=== PATIENT | male | born 1965 | race Two or more races ===

== ENCOUNTER → 2024-04-01 | Outpatient (CLI) | payer MEDICAID, SELFPAY ==
--- NOTE | 2024-04-01 14:20 | XR_ITS ---
Examination: Bone densitometry Date and time of exam:April 01, 2024 1425 hours INDICATIONS: 58-year-old male with diagnosis age related osteoporosis Technique: Lumbar spine total bone mineralization values of an calculated. Peak reference and age match control results have been displayed. Findings: Lumbar spine total bone mineralization is0.847 gm/cm2. This is 2.2 standard deviations below peak reference. This is 1.6 standard deviations below age-matched controls. Impression: There is osteopenia based on lumbar spine measurements.
== END | disposition home or self-care (01) ==
PROVIDERS: Referring Provider Physician Assistant; Visit Provider Physician Assistant
DX: M85.88 Other specified disorders of bone density and structure, other site (principal); G80.9 Cerebral palsy, unspecified
CPT/HCPCS: 77080

== ENCOUNTER 2024-09-01 19:02 | Inpatient (IN) | payer MEDICAID, SELFPAY ==
[2024-09-01 19:14] VITALS: PULSE 83; RESP 16; O2SAT 99
--- NOTE | 2024-09-01 19:20 | EKG_ITS ---
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
--- NOTE | 2024-09-01 19:20 | PD.EDSOB ---
ED SOB =RME/HPI General Chief Complaint: Dental/Oral/Throat Stated Complaint: CHOCKING Time Seen by Provider: 09/01/24 19:20 Arrival date/time: 09/01/24 19:02 RME / HPI RME / HPI Narrative: Dr. 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 Per EMS, patient was being fed dinner when he started choking. CPR was started by family on scene because they thought it might help remove the food bolus. PFD placed a NPA prior to EMS arrival. EMS removed the NPA, suctioned the patient, and was able to remove the food bolus. Patient is nonverbal and is unable to provide any history. Related Data Home Medications ?Medication ?Instructions ?Recorded ?Confirmed atorvastatin 20 mg tablet (Lipitor) 20 mg PO HS #0 tabs 03/08/17 09/20/20 docusate sodium 250 mg capsule 250 mg PO BID #0 caps 03/08/17 09/20/20 (DOK) melatonin 5 mg tablet 10 mg PO HS #0 tabs 03/08/17 09/20/20 levothyroxine 75 mcg capsule 75 mcg PO QDAY 09/20/20 09/20/20 trazodone 50 mg tablet 50 mg PO HS 09/20/20 09/20/20 Allergies Allergy/AdvReac Type Severity Reaction Status Date / Time No Known Allergies Allergy Verified 09/20/20 11:54 Review of Systems Review of Systems ROS Unobtainable: unobtainable due to mental status Past Medical History Social History SMOKING STATUS: Never smoker ED Exam Narrative Physical exam: GEN. APPEARANCE: The patient is alert awake, nonverbal, appears chronically ill, does not follow commands, no stridor. VITALS: All vitals were reviewed and the pulse ox is 95% on 6L/oxy mask which is abnormal according to my interpretation. HEENT: Normocephalic, atraumatic. Pupils are equal and reactive. Oral mucosa is moist. Dry blood to bilateral nares. Mostly edentulous. NECK: Supple, nontender, no thyromegaly, no meningismus, no JVD CHEST: Symmetrical, atraumatic, and with equal expansion , Nontender on palpation no deformity and no crepitus. CARDIOVASCULAR: Heart regular rhythm no murmur or gallop rub or extra beats. LUNGS: Clear to auscultation bilaterally with symmetrical chest rise. No laboring tachypnea or wheezing. No intercostal subcostal retraction. No rales and no rhonchi. ABDOMEN: Soft, flat, nontender to palpation, no guarding or rebound tenderness. There are no abnormal masses palpated. Active and normal bowel sounds. EXTREMITIES: Nontender. No edema. No cyanosis. Contractures of all 4 extremities. SKIN: Warm and dry, no jaundice or rashes noted. NEURO: Patient is awake, Cranial nerves II through XII grossly intact. There is no focal neurologic deficits noted. Course Course Course Narrative: CXR ordered to r/o aspiration pneumonia. Quality Measures none Orders Category Date Time Status Bedside COVID-19 Antigen Test NOW Care 09/01/24 19:20 Active Bedside Influenza A&B Antigen Test NOW Care 09/01/24 19:[address] Screening NOW Care 09/01/24 21:[address] Screening NOW Care 09/01/24 21:38 Completed EKG (ED ONLY) *Do not use* NOW Care 09/01/24 19:[address] abdomen pelvis w con Stat Exams 09/01/24 21:[address] angio chest Stat Exams 09/01/24 21:[address] facial bones wo con Stat Exams 09/01/24 19:[address] head/brain wo con Stat Exams 09/01/24 19:23 Taken CXR [XR chest 1V] Stat Exams 09/01/24 19:20 Completed EKG (ED Only) Stat Exams 09/01/24 19:20 Draft XR soft tissue neck Stat Exams 09/01/24 19:20 Completed BNP [B-Type Natriuretic Peptide] Stat Lab 09/01/24 19:44 Completed CBC Stat Lab 09/01/24 19:44 Completed CMP [Comprehensive Metabolic Panel] Stat Lab 09/01/24 19:44 Completed Troponin I Stat Lab 09/01/24 19:44 Completed Midazolam Inj [Versed Inj] Med 09/01/24 21:47 Discontinued 0.5 mg IVP NOW ONE Midazolam Inj [Versed Inj] Med 09/01/24 21:50 Discontinued 0.5 mg IVP X1 STA Midazolam Inj [Versed Inj] Med 09/02/24 00:02 Discontinued 1 mg IVP X1 ONE traZODone HCL [Desyrel] Med 09/01/24 21:50 Discontinued 100 mg PO X1 ONE Vital Signs Vital signs: Vital Signs Temperature 97.5 F 09/01/24 19:24 Pulse Rate 73 09/01/24 19:24 Respiratory Rate 20 09/01/24 19:24 Blood Pressure 111/76 09/01/24 19:24 Pulse Oximetry (%) 95 09/01/24 19:24 Oxygen Delivery Method Oxy Mask 09/01/24 19:24 Oxygen Flow Rate 6 09/01/24 19:24 PROCEDURES: Rectal Disimpaction Time out performed rectal disimpaction: Yes Indication: fecal impaction Procedural Sedation: No Sedation/Analgesia: none Technique: manual disimpaction with gloved finger Result: unable to disimpact Patient Tolerated Procedure: well and no complications Shortness of Breath / Dyspnea MDM Narrative MDM Narrative:: Scribe Attestation: 09/01/24 - Rocio, Samina Polanco am scribing for and in the presence of Dr. Branch. Patient is a 59-year-old male with an emergency department with concerns for acute choking episode with food. Vital signs and exam as listed. Concern for aspiration, pneumonitis, pneumonia. Ordered x-ray of the neck, chest x-ray and labs. Labs without leukocytosis, no left shift, no acute electrolyte abnormalities, no significant transaminitis, troponin not elevated, BNP within normal limits. EKG without evidence of ischemia or arrhythmia, soft tissue neck unremarkable. Chest x-ray with possible aspiration pneumonitis. Head CT, CT max face unremarkable. CT chest with groundglass densities. CT abdomen pelvis with significantly dilated loops of bowel, there was a large stool ball distending the rectum with mild circumferential rectal wall thickening and some perirectal soft tissue stranding concerning for stercoral colitis. Also a large fecal load concerning for constipation. A small subcentimeter metallic appearing density noted within the ascending colon which may represent ingested material. No free air. I performed a rectal disimpaction, minimal stool was able to be removed, not within reach of my fingers. Given finding on CT scan, I did discuss admission with the hospitalist team as the patient may benefit from a gastroenterology evaluation. 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 EKG done at [facility] Report Signed Patient: MARIUSZ ZHANG. Record#: [id number] Birthdate: 1965 Age/Sex: 59 / M Location: [facility] Attending Dr: Ordering Physician: Maribell Branch MD Date of Service: 09/01/24 Procedure(s): XR chest 1V Accession Number(s): [id number] cc: Uri Junior MD; Maribell Branch MD; Alfredo Fernandez PA-C~ Examination: AP chest single view TECHNIQUE: AP semiupright chest portable single view Date and time: September 01, 2024, 1927 hours INDICATIONS: Choking episode today. FINDINGS: Minimal pneumonia right base obscuring detail right hemidiaphragm Normal heart size The osseous structures are intact IMPRESSION: Minimal pneumonia right base, consider aspiration pneumonia Dictated By: Uri Junior MD Signed By: <Electronically signed by Uri Junior MD in OV> 09/01/[id number] [facility] Report Signed Patient: MARIUSZ ZHANG. Record#: [id number] Birthdate: 1965 Age/Sex: 59 / M Location: [facility] Attending Dr: Ordering Physician: Maribell Branch MD Date of Service: 09/01/24 Procedure(s): XR soft tissue neck Accession Number(s): [id number] cc: Uri Junior MD; Maribell Branch MD; Youssefi,Alfredo PA-C~ Examination: AP lateral soft tissue neck 2 views TECHNIQUE: AP lateral soft tissue neck 2 views Date and time: September 01, 2024 1925 hours INDICATIONS: Coughing obstruction today choking FINDINGS: Normal epiglottis No prevertebral soft tissue prominence No opaque foreign body IMPRESSION: Normal epiglottis No prevertebral soft tissue prominence Dictated By: Uri Junior MD Signed By: <Electronically signed by Uri Junior MD in OV> 09/01/242136 [facility] Preliminary Report Draft Patient: MARIUSZ ZHANG. Record#: [id number] Birthdate: 1965 Age/Sex: 59 / M Location: [facility] Attending Dr: Ordering Physician: Date of Service: Procedure(s): Accession Number(s): cc: ~ CT maxillofacial without intravenous contrast (axial sections with sagittal and coronal reformats). September 01, 2024 2358 hours Clinical History: trauma Comparison: None Findings: There is no fracture, dislocation or other acute osseous abnormality of the face. Globes are intact. There is drusen along the posterior aspect of both globes. Superficial soft tissues of the face are intact. There is mild paranasal sinus fluid/mucosal thickening. The tympanomastoid cavities are clear. There is cerumen within the external auditory canals bilaterally. There are numerous missing teeth. There is degenerative change in the cervical spine. Impression: No acute osseous abnormality of the face. Report Electronically Signed By: Chadd Zacarias 09/02/2024 2:24:44 AM [EST] [facility] Preliminary Report Draft Patient: MARIUSZ ZHANG [facility]. Record#: [id number] Birthdate: 1965 Age/Sex: 59 / M Location: [facility] Attending Dr: Ordering Physician: Date of Service: Procedure(s): Accession Number(s): cc: ~ CT angiogram of the chest with intravenous contrast (axial sections with sagittal and coronal reformats). September 02, 2024 0018 hours Clinical History: PE, aspiration Comparison: None Findings: Heart is normal in size. There is no pericardial or pleural effusion. There is no thoracic aortic aneurysm or obvious thoracic aortic dissection. There is no filling defect within the pulmonary arterial circulation. Thyroid is not enlarged. There is no thoracic lymphadenopathy. There are patchy somewhat ground glass densities within the lungs bilaterally which may represent atelectasis and/or pneumonia. There is no pneumothorax. There is no acute osseous abnormality. Mild dextrocurvature noted of the thoracic spine. Impression: No thoracic aortic aneurysm or dissection. No pulmonary arterial embolism. No pericardial or pleural effusion. No pneumothorax. Patchy ground glass densities in the lungs bilaterally may indicate atelectasis and/or pneumonia. Report Electronically Signed By: Chadd Zacarias 09/02/2024 2:32:47 AM [EST [facility] Preliminary Report Draft Patient: MARIUSZ ZHANG [place]. Record#: [id number] Birthdate: 1965 Age/Sex: 59 / M Location: [facility] Attending Dr: Ordering Physician: Date of Service: Procedure(s): Accession Number(s): cc: ~ CT scan of the head without intravenous contrast (axial sections with sagittal and coronal reformats). September 01, 2024 at 2358 hours Clinical History: AMS. Comparison: No prior study is available for comparison. Findings: There is no intracranial hemorrhage, extra-axial collection, mass, mass-effect or midline shift. There is mild white matter disease within the cerebral hemispheres which is nonspecific but may represent chronic small vessel ischemic change. There is good woody-white differentiation. There is no CT evidence of acute large vascular territorial infarct. There is mild passive compensatory enlargement of the lateral ventricles and also possibly the third ventricle. There is mild bilateral maxillary sinus and left sphenoid sinus fluid/mucosal thickening. The tympanomastoid cavities are clear. The bony calvarium is intact. There is increased density of the right globe, which may be related to postoperative change, recommend clinical correlation. There is drusen suggested along the posterior aspect of both globes. Impression: No intracranial hemorrhage, mass-effect or midline shift. No CT evidence of acute large vascular territorial infarct. Report Electronically Signed By: Chadd Zacarias 09/02/2024 2:41:17 AM [EST] [facility] Preliminary Report Draft Patient: MARIUSZ ZHANG. Record#: [id number] Birthdate: 1965 Age/Sex: 59 / M Location: [facility] Attending Dr: Ordering Physician: Date of Service: Procedure(s): Accession Number(s): cc: ~ CT scan of the abdomen and pelvis with intravenous contrast (axial sections with sagittal and coronal reformats). September 02, 2024 0018 hours Clinical History: obstruction, dilated loops of bowel on CXR Comparison: None Findings: The liver, gallbladder, spleen, pancreas, adrenals and kidneys are unremarkable. Urinary bladder only contains a small amount of fluid and and is not adequately distended. Nonspecific central prostatic calcification noted. Prostate is not enlarged. There is large stool ball distending the rectum with mild circumferential rectal wall thickening and some mild perirectal soft tissue stranding, findings are suspicious for stercoral colitis. There is overall large fecal load in the colon suggesting constipation. Appendix is not definitely visualized there is no obvious inflammatory change around the cecum. Small subcentimeter metallic appearing density noted within the ascending colon and may represent some ingested material. There is no free intraperitoneal air or fluid. There is no abdominal or pelvic lymphadenopathy. There are vascular calcifications along the abdominal aorta and branch vessels without aneurysmal dilatation. There is no acute osseous abnormality. Impression: Large stool ball distending the rectum with circumferential rectal wall thickening and perirectal fat stranding worrisome for stercoral colitis. Recommend fecal disimpaction. Report Electronically Signed By: Chadd Zacarias 09/02/2024 2:53:30 AM [EST] Medications / Prescriptions Medications or Prescriptions considered but not ordered:: none Medication administrations:: Medication Administration History Acetaminophen (Acetaminophen Supp 650 Mg Supp) [address] Q6HR PRN PRN Reason: Fever > 100.4 Stop: 10/02/24 03:52 Lactated Ringer's (Lactated Ringers) 1,000 mls @ 75 mls/hr IV .[id number] [facility] Stop: 09/02/24 17:19 Ampicillin Sodium/Sulbactam (Sodium 3 gm/ Sodium Chloride) 100 mls @ 200 mls/hr IV Q6HR [facility] Stop: 09/09/24 05:59 Ondansetron HCl (Ondansetron Inj 2 Mg/Ml Inj 2 Ml) 4 mg IVP Q6H PRN; Protocol PRN Reason: NAUSEA OR VOMITING Stop: 10/02/24 03:52 Pantoprazole Sodium (Pantoprazole Inj 40 Mg Vial) 40 mg IVP QDAY CHARLES Stop: 10/02/24 08:59 Discontinued Medications Midazolam HCl (Midazolam Inj 1 Mg/Ml Vial 2 Ml) 0.5 mg IVP NOW ONE Stop: 09/01/24 21:48 Last Admin: 09/01/24 23:38 Dose: Not Given Documented By: EE Non-Admin Reason: Cancelled by Provider Midazolam HCl (Midazolam Inj 1 Mg/Ml Vial 2 Ml) 0.5 mg IVP X1 STA Stop: 09/01/24 21:51 Last Admin: 09/01/24 23:39 Dose: 0.5 mg Documented By: EE Midazolam HCl (Midazolam Inj 1 Mg/Ml Vial 2 Ml) 1 mg IVP X1 ONE Stop: 09/02/24 00:03 Last Admin: 09/02/24 00:10 Dose: 1 mg Documented By: EE Trazodone HCl (Trazodone Hcl 50 Mg Tablet) 100 mg PO X1 ONE Stop: 09/01/24 21:51 Last Admin: 09/01/24 23:38 Dose: Not Given Documented By: EE Non-Admin Reason: Cancelled by Provider see above Consultations Consultation(s) initiated? (list below): Yes Consultation #1 (Physician, Specialty, Details): Discussed case with the resident physician, attending Dr. Pena from Hospitalist service regarding admission. Discussed patients ED course, exam findings, labs, and radiology results. The Hospitalist agrees to accept the patient for admission. Time: 03:01 Diagnosis Shortness of Breath Differential Diagnosis: other (aspiration, partial bowel obstruction, perforation) Most likely diagnosis given after review of the tests above:: stercoral colitis, fecal impaction Admission Indicated Admission indicated?: indicated Admission Request Was there a request for admission?: Yes Admission Attestation Admission request attestation: Discussed case with [] from Hospitalist service regarding admission. Discussed patients ED course, exam findings, labs, and radiology results. The Hospitalist [agrees,declines] to accept the patient for admission. Disposition Plan Disposition Plan: Admit Critical Care Time Critical Care Time Critical Care Time: Yes Total Critical Care Time (min.): 35 Attestation: The high probability of sudden, clinically significant deterioration in the patient?s condition required the highest level of my preparedness to intervene urgently. The services I provided to this patient were to treat and/or prevent clinically significant deterioration. Services included the following: chart data review, reviewing nursing notes and/or old charts, documentation time, chain sales consultant collaboration regarding findings and treatment options, medication orders and management, direct patient care, vital sign assessments and ordering, interpreting and reviewing diagnostic studies and lab tests. Aggregate critical care time includes only time during which I was engaged in work directly related to the patient?s care, as described above, whether at bedside or elsewhere in the Emergency Department. It did not include time spent performing other reported procedures or the services of residents, students, nurses or physician assistants. Discharge Plan Plan Patient Disposition: Admit Acute Care w/in Hospital Problem List Clinical Impression: Stercoral colitis, Fecal impaction
--- NOTE | 2024-09-01 19:23 | XR_ITS ---
Examination: CT brain head without contrast. 2-D sagittal coronal reconstructions Date and time of exam:September 01, 2024, 2015 hours INDICATIONS: Altered mental status today CTDI: vol (mGy):51 DLP: (mGycm):1024 Technique: Multiple CT axial sections of the brain have been obtained, 5 mm slice thickness. Contrast has not been administered. 2-D sagittal, coronal reconstructions have been obtained Low dose protocols were performed. One or more of the following dose reduction techniques were used; automated exposure control, adjustment of the mA and/or KV according to patient size, use of iterative reconstruction technique. Findings: Mild ventricular enlargement. Intra-axial or extra-axial hemorrhage density is not seen. No mass effect or midline shift Basal cisterns are not remarkable. Fourth ventricle is midline. Cranial vault intact. Impression: Negative for acute hemorrhage, mass effect or midline shift Acute left sphenoid sinusitis
--- NOTE | 2024-09-01 19:23 | XR_ITS ---
Examination: CT maxillofacial, without intravenous contrast. 2-D sagittal reconstructions. 3-D reconstructions. Date and time of exam:September 01, 2024 at 2018 hours INDICATIONS: Trauma to the neck today CTDI: vol (mGy):22.1 DLP: (mGycm):467 Technique: Multiple axial images of maxillofacial region, 3.0 mm slice thickness. 2-D sagittal and coronal reconstructions. 3-D reconstructions. Low dose protocols were performed. One or more of the following dose reduction techniques were used; automated exposure control, adjustment of the mA and/or KV according to patient size, use of iterative reconstruction technique. Findings: Frontal and frontal sinuses intact No nasal bone fracture Orbital rims intact No depression zygomatic arches Fluid level of maxillary antrum Maxilla and mandible are intact Right maxillary incisor dental caries. IMPRESSION: No acute facial fracture
[2024-09-01 19:24] VITALS: BP 111/76; PULSE 73; RESP 20; TEMP 36.4; O2SAT 95
[2024-09-01 20:00] LABS: Basophils # (Auto) 0.1 Thou/mm3 (0.0-0.2); Basophils % (Auto) 1 % (0-2.5); Eosinophils # (Auto) 0.1 Thou/mm3 (0.0-0.5); Eosinophils % (Auto) 1 % (0-10); Hematocrit 40.2 % (41.0-53.0); Hemoglobin 14.0 g/dL (13.5-16.0); Immature Granulocytes Auto 0.02 Thou/mm3 (0.00-0.00); Lymphocytes # (Auto) 1.8 Thou/mm3 (1.0-4.8); Lymphocytes % (Auto) 25 % (10-50); Mean Corpuscular HGB Conc 34.8 g/dl (31.0-37.0); Mean Corpuscular Hemoglobin 30.9 pg (25.0-35.0); Mean Corpuscular Volume 89 fL (80-100); Monocytes # (Auto) 0.5 Thou/mm3 (0.0-0.8); Monocytes % (Auto) 7 % (0-12); Neutrophils # (Auto) 4.8 Thou/mm3 (1.8-7.7); Neutrophils % (Auto) 65 % (37-80); Nucleated Red Blood Cell # 0.00 Thou/mm3 (0.00-0.00); Nucleated Red Blood Cell % 0 /100 WBC (0); Platelet Count 274 Thou/mm3 (140-440); RDW Standard Deviation 44.5 fL (35.1-43.9); Red Blood Count 4.53 Miln/mm3 (4.50-5.90); White Blood Count 7.3 Thou/mm3 (3.8-10.6)
[2024-09-01 20:16] LABS: B-Type Natriuretic Peptide 32 pg/mL (0-100)
[2024-09-01 20:18] LABS: Alanine Aminotransferase 28 U/L (10-49); Albumin, Serum 4.3 gm/dL (3.4-4.8); Albumin/Globulin Ratio 1.8 (1.2-2.2); Alkaline Phosphatase 145 U/L (46-116); Anion Gap 9 (7-16); Aspartate Amino Transferase 33 U/L (0-34); BUN/Creatinine Ratio 30 Ratio (12-20); Bilirubin,Total 0.3 mg/dL (0.3-1.2); Blood Urea Nitrogen 24 mg/dL (9-23); Calcium 9.9 mg/dL (8.3-10.6); Calcium (Corrected) 9.9 mg/dL (8.5-10.1); Carbon Dioxide 26.2 mMol/L (20.0-31.0); Chloride 106 mMol/L (98-107); Creatinine (Component) 0.8 mg/dL (0.6-1.3); Globulin 2.4 gm/dL (2.3-3.5); Glucose 137 mg/dL (74-106); Osmolality,Calculated 287 (275-295); Potassium 3.4 mMol/L (3.4-5.1); Sodium 141 mMol/L (136-145); Total Protein 6.7 gm/dL (5.7-8.2); Troponin I < 0.020 ng/mL (0.0-0.045); eGFR > 60 See Note
[2024-09-01 20:33] VITALS: BP 107/57; PULSE 76; RESP 20; TEMP 36.4; O2SAT 95
--- NOTE | 2024-09-01 21:30 | XR_ITS ---
Examination: CT abdomen with intravenous contrast CT pelvis with intravenous contrast 2-D coronal reconstructions 2-D sagittal reconstructions Date and time of exam:Choking coughing abdominal pain today. CTDI: vol (mGy) 9.40 DLP: (mGycm) 548 Technique: Multiple axial sections of the abdomen and pelvis have been obtained. 64 slice high-resolution scanner used. 3 mm axial sections have been obtained, post intravenous injection 100 cc Isovue-370 2-D sagittal, coronal reconstructions obtained. Low dose protocols were performed. One or more of the following dose reduction techniques were used; automated exposure control, adjustment of the mA and/or KV according to patient size, use of iterative reconstruction technique. Findings: No focal liver or splenic lesion No gallstones No pancreatic or adrenal mass No renal or ureteral calculi, no pericecal inflammatory change Large amounts of stool throughout the entire colon, very large amounts of stool in the rectosigmoid with thickening of the rectal wall No prostatomegaly Contracted urinary bladder, portions of the urinary bladder are present in right and left inguinal hernias Prominent osteopenia IMPRESSION: Very large amounts of stool in the rectosigmoid and rectum with thickening of the rectal wall, differential would include proctitis
--- NOTE | 2024-09-01 21:38 | XR_ITS ---
Examination: CTA chest with intravenous contrast 2-D reconstructions 3-D reconstructions, vascular Date and time of exam: September 02, 2024 0018 hours INDICATIONS: Choking shortness of breath chest pain today CTDI: vol (mGy) 10.6 DLP: (mGycm) 387 Technique: Multiple axial sections of the thorax have been obtained. 3 mm slice thickness, from below the hemidiaphragms to above the apices of the lungs. Mediastinal and lung density settings have been obtained. 2-D sagittal and coronal reconstructions. 3-D angiographic renderings, 3-D volume renderings, 3D post processing, vascular maximum intensity projections obtained. Contrast administered is 100 cc Isovue 370. Low dose protocols were performed. One or more of the following dose reduction techniques were used; automated exposure control, adjustment of the mA and/or KV according to patient size, use of iterative reconstruction technique. Findings: No thoracic aortic aneurysmal dilatation or dissection No pulmonary artery filling defects Mild enlargement cardiac contour and No mediastinal lymphadenopathy Mild vascular congestion Subtle opacity throughout the lung de paz Moderate osteopenia IMPRESSION: Negative for pulmonary artery emboli Suspicious for mild bilateral pneumonia
[2024-09-01 22:37] VITALS: BP 94/54; PULSE 73; RESP 20; O2SAT 99
[2024-09-01] MEDS: MIDAZOLAM INJ 1 MG/ML VIAL 2 ML 0.5 MG IVP (23:39)
[2024-09-01 23:57] VITALS: BP 118/80; PULSE 105; RESP 20; O2SAT 99
[2024-09-02] VITALS (13 sets, daily range): BP systolic 88–121; BP diastolic 43–75; PULSE 62–82; RESP 12–95; TEMP 34.4–36.9; O2SAT 91–99
[2024-09-02] MEDS: MIDAZOLAM INJ 1 MG/ML VIAL 2 ML IVP (00:10)
--- NOTE | 2024-09-02 02:25 | PRELIM_ITS ---
CT maxillofacial without intravenous contrast (axial sections with sagittal and coronal reformats). September 01, 2024 2358 hours Clinical History: trauma Comparison: None Findings: There is no fracture, dislocation or other acute osseous abnormality of the face. Globes are intact. There is drusen along the posterior aspect of both globes. Superficial soft tissues of the face are intact. There is mild paranasal sinus fluid/mucosal thickening. The tympanomastoid cavities are c lear. There is cerumen within the external auditory canals bilaterally. There are numerous missing teeth. There is degenerative change in the cervical spine. Impression: No acute osseous abnormality of the face. Report Electronically Signed By: Chadd Zacarias 09/02/2024 2:24:44 AM [EST]
--- NOTE | 2024-09-02 02:33 | PRELIM_ITS ---
CT angiogram of the chest with intravenous contrast (axial sections with sagittal and coronal reformats). September 02, 2024 0018 hours Clinical History: PE, aspiration Comparison: None Findings: Heart is normal in size. There is no pericardial or pleural effusion. There is no thoracic aortic aneurysm or obvious thoracic aortic dissection. There is no filling defect within the pulmonary arterial circulation. Thyroid is not enlarged. There is no thoracic lymphadenopathy. There are patchy somewhat ground glass densities within the lungs bilaterally which may represent atelectasis and/or pneumonia. There is no pneumothorax. There is no acute osseous abnormality. Mild dextrocurvature noted of the thoracic spine. Impression: No thoracic aortic aneurysm or dissection. No pulmonary arterial embolism. No pericardial or pleural effusion. No pneumothorax. Patchy ground glass densities in the lungs bilaterally may indicate atelectasis and/or pneumonia. Report Electronically Signed By: Chadd Zacarias 09/02/2024 2:32:47 AM [EST]
--- NOTE | 2024-09-02 02:41 | PRELIM_ITS ---
CT scan of the head without intravenous contrast (axial sections with sagittal and coronal reformats). September 01, 2024 at 2358 hours Clinical History: AMS. Comparison: No prior study is available for comparison. Findings: There is no intracranial hemorrhage, extra-axial collection, mass, mass-effect or midline shift. There is mild white matter disease within the cerebral hemispheres which is nonspecific but may represent chronic small vessel ischemic change. There is good woody-white differentiation. There is no CT evidence of acute large vascular territorial infarct. There is mild passive compensatory enlargement of the lateral ventricles and also possibly the third ventricle. There is mild bilateral maxillary sinus and left sphenoid sinus fluid/mucosal thickening. The tympanomastoid cavities are clear. The bony calvarium is intact. There is increased density of the right globe, which may be related to postoperative change, recommend clinical correlation. There is drusen suggested along the posterior aspect of both globes. Impression: No intracranial hemorrhage, mass-effect or midline shift. No CT evidence of acute large vascular territorial infarct. Report Electronically Signed By: Chadd Zacarias 09/02/2024 2:41:17 AM [EST]
--- NOTE | 2024-09-02 02:54 | PRELIM_ITS ---
CT scan of the abdomen and pelvis with intravenous contrast (axial sections with sagittal and coronal reformats). September 02, 2024 0018 hours Clinical History: obstruction, dilated loops of bowel on CXR Comparison: None Findings: The liver, gallbladder, spleen, pancreas, adrenals and kidneys are unremarkable. Urinary bladder only contains a small amount of fluid and and is not adequately distended. Nonspecific central prostatic calcification noted. Prostate is not enlarged. There is large stool ball distending the rectum with mild circumferential rectal wall thickening and some mild perirectal soft tissue stranding, findings are suspicious for stercoral colitis. There is overall large fecal load in the colon suggesting constipation. Appendix is not definitely visualized there is no obvious inflammatory change around the cecum. Small subcentimeter metallic appearing density noted within the ascending colon and may represent some ingested material. There is no free intraperitoneal air or fluid. There is no abdominal or pelvic lymphadenopathy. There are vascular calcifications along the abdominal aorta and branch vessels without aneurysmal dilatation. There is no acute osseous abnormality. Impression: Large stool ball distending the rectum with circumferential rectal wall thickening and perirectal fat stranding worrisome for stercoral colitis. Recommend fecal disimpaction. Report Electronically Signed By: Chadd Zacarias 09/02/2024 2:53:30 AM [EST]
--- NOTE | 2024-09-02 04:00 | PD.RESHP ---
Documentation for date of: 09/02/24 HPI History of Present Illness Chief complaint: Choking History of present illness: 59-year-old male with past medical history of developmental delay nonverbal at baseline, cerebral palsy, chronic constipation, previous GI bleed, and GERD was admitted to the hospital on 09/02/2024 after come to the ED after witnessed episode of choking at the alf. Given patient's nonverbal status most of the history was taken from chart review and from the patient's caregiver was at bedside. Patient's caregiver was at bedside and stated that today he was eating dinner and was eating too fast and had an episode of choking where they did the Heimlich, but were unsuccessful on removing any impacted food. At this time per patient's caregiver they have started chest compressions with the patient was found unresponsive, but it was unclear if patient lost pulse. Patient was not hypoxic at this time, but in the ED was found to be mildly hypoxic and was placed on OxyMask. Per patient's caregiver patient has been having bowel movements but have mostly been loose and he normally gets medication for constipation. She stated that otherwise the patient was in usual state of health and that today he also had some nosebleed as well. Otherwise patient has not had any other episodes of choking or any sick contacts. ED course: Initially came in afebrile and normotensive. Initial labs were fairly unremarkable. Initial imaging included chest x-ray which showed right base pneumonia, soft tissue neck x-ray which was unremarkable, face CT which preliminary did not show any fractures, CTA chest with preliminary showed pneumonia, but no pneumothorax or pericardial effusions, CTA head with preliminary report did not show any intracranial hemorrhage or mass effect, and CT abdomen/pelvis with preliminary showed large stool ball distending the rectum with circumferential rectal wall thickening and perirectal fat stranding which is worrisome for stercoral colitis. ED physician attempted manual disimpaction but was unsuccessful at this time. Patient's CODE STATUS was placed full code as patient is conserved, but no documentation of patient's CODE STATUS as this time was given. Will follow-up on CODE STATUS tomorrow as caregiver at bedside did not know the CODE STATUS either. Review of Systems Review of Systems ROS Unobtainable: unobtainable due to medical condition Past Medical History Past Medical History Comments PMH COMMENT: PMH: developmental delay nonverbal at baseline, cerebral palsy, chronic constipation, previous GI bleed, and GERD Exam Vital Signs Temp Pulse Resp BP Pulse Ox O2 Del Method O2 Flow Rate 97.1 F 69 12 98/56 L 99 Oxy Mask 6 09/02/24 03:00 09/02/24 03:00 09/02/24 03:00 09/02/24 03:00 09/02/24 03:00 09/02/24 03:00 09/02/24 03:00 Narrative Exam Physical exam very limited given patient's medical condition. General: Patient did not appear to be in any acute distress at this time, nonverbal at baseline Eyes: Pupils equally reactive, EOMI Ears: No visible ear discharge Nose: Some dried blood around nostrils up laterally Mouth/Throat: Moist mucous membranes, multiple missing teeth, no redness, no lesions. Neck: Neck supple, non-tender, no cervical lymphadenopathy. Lungs: Mildly decreased on the right lower lobe, clear bilaterally upper lobes and left lower lobe, No accessory muscle use. Cardio: Normal S1/S2, regular rhythm, no murmurs, no JVD Abdomen: Soft, non distended, no palpable masses, peristalsis present, no guarding or rebound. Extremities: Symmetrical, no significant deformities, no peripheral edema , non-tender, peripheral pulses presents, bilateral lower extremities with contractures. Skin: No rashes, no lesions, warm to touch. Neuro: Patient unable to follow commands, but was moving all extremities. Results: Labs 09/02/24 04:56 09/01/24 19:44 Labs: Short CBC 09/01/24 Range/Units 19:44 WBC 7.3 (3.8-10.6) Thou/mm3 Hgb 14.0 (13.5-16.0) g/dL Hct 40.2 L (41.0-53.0) % Plt Count 274 (140-440) Thou/mm3 BMP 09/01/24 19:44 Sodium 141 Potassium 3.4 Chloride 106 Carbon Dioxide 26.2 BUN 24 H Creatinine 0.8 Glucose 137 H Calcium 9.9 Cardiac Enzymes 09/01/24 Range/Units 19:44 Troponin I < 0.020 (0.0-0.045) ng/mL Liver Function 09/01/24 Range/Units 19:44 Total Bilirubin 0.3 (0.3-1.2) mg/dL AST 33 (0-34) U/L ALT 28 (10-49) U/L Alkaline Phosphatase 145 H (46-116) U/L Albumin 4.3 (3.4-4.8) gm/dL Quality Measures Quality Measures none Medications Home Medications and Allergies Home Medications ?Medication ?Instructions ?Recorded ?Confirmed ?Type atorvastatin 20 mg tablet (Lipitor) 20 mg PO HS #0 tabs 03/08/17 09/20/20 History docusate sodium 250 mg capsule 250 mg PO BID #0 caps 03/08/17 09/20/20 History (DOK) melatonin 5 mg tablet 10 mg PO HS #0 tabs 03/08/17 09/20/20 History levothyroxine 75 mcg capsule 75 mcg PO QDAY 09/20/20 09/20/20 History trazodone 50 mg tablet 50 mg PO HS 09/20/20 09/20/20 History Allergies Allergy/AdvReac Type Severity Reaction Status Date / Time No Known Allergies Allergy Verified 09/20/20 11:54 Visit Medications Acetaminophen (Acetaminophen Supp 650 Mg Supp) 650 mg NM Q6HR PRN PRN Reason: Fever > 100.4 Stop: 10/02/24 03:52 Lactated Ringer's (Lactated Ringers) 1,000 mls @ 75 mls/hr IV .[id number] [facility] Stop: 09/02/24 17:19 Ampicillin Sodium/Sulbactam (Sodium 3 gm/ Sodium Chloride) 100 mls @ 200 mls/hr IV Q6HR [facility] Stop: 09/09/24 05:59 Ondansetron HCl (Ondansetron Inj 2 Mg/Ml Inj 2 Ml) 4 mg IVP Q6H PRN; Protocol PRN Reason: NAUSEA OR VOMITING Stop: 10/02/24 03:52 Discontinued Medications Midazolam HCl (Midazolam Inj 1 Mg/Ml Vial 2 Ml) 0.5 mg IVP NOW ONE Stop: 09/01/24 21:48 Last Admin: 09/01/24 23:38 Dose: Not Given Midazolam HCl (Midazolam Inj 1 Mg/Ml Vial 2 Ml) 0.5 mg IVP X1 STA Stop: 09/01/24 21:51 Last Admin: 09/01/24 23:39 Dose: 0.5 mg Midazolam HCl (Midazolam Inj 1 Mg/Ml Vial 2 Ml) 1 mg IVP X1 ONE Stop: 09/02/24 00:03 Last Admin: 09/02/24 00:10 Dose: 1 mg Trazodone HCl (Trazodone Hcl 50 Mg Tablet) 100 mg PO X1 ONE Stop: 09/01/24 21:51 Last Admin: 09/01/24 23:38 Dose: Not Given Assessment & Plan Plan 59-year-old male with past medical history of developmental delay nonverbal at baseline, cerebral palsy, chronic constipation, previous GI bleed, and GERD was admitted to the hospital on 09/02/2024 for severe constipation and aspiration pneumonia. #Severe constipation #Possible stercoral colitis Patient has a history of constipation and takes multiple medications for this, but as per patient's caregiver has been having loose bowel movements only. CT abdomen/pelvis with preliminary showed large stool ball distending the rectum with circumferential rectal wall thickening and perirectal fat stranding which is worrisome for stercoral colitis Patient's bowel movement most likely overflow diarrhea ED physician attempted rectal disimpaction, but was unsuccessful at this time. Plan: IV fluids Will hold off on oral bowel regimen given the patient had a choking episode and will request speech therapy evaluation prior to starting p.o. GI consulted, appreciate recommendations Patient may require fecal disimpaction again #Acute hypoxic respiratory failure #Possible Aspiration pneumonia #Choking episode Patient had episode of choking today with dinnertime and patient's caregiver stated that was that he was eating too fast. Patient's chest x-ray that showed right base pneumonia and patient's chest CT also showed changes concerning for pneumonia. Patient has no WBC elevation at this time Patient was mildly hypoxic when he came into the ED and was placed on oxy mask Consider pneumonitis versus aspiration pneumonia Plan: Unasyn Aspiration precautions Therapy referral N.p.o. until speech therapy sees the patient Disposition: Patient admitted to med surg for constipation and Aspiration PNA . Diet: NPO GI prophylaxis: protonix DVT prophylaxis: SCDs Code: Full code as no documentation of patient's code status, patient is conserved Case disclosed with Attending Dr. Carrie Begum PGY1 Disclaimer: Even though this this note was dictated by speech recognition and even though it was carefully revised there may still be minor errors in events and promotions assistant due to voice recognition software. Attending Provider Attestation/Addendum With 59-year-old male patient with developmental delay was admitted after he had an episode of choking and possible aspiration into the respiratory tract. The patient was found to be severely constipated with possible stercoral colitis. The patient will be admitted for further evaluation and management. I discussed with and supervised the resident physician who took care of this patient. I agree with the assessment and plan as above.
[2024-09-02 05:15] LABS: Basophils # (Auto) 0.1 Thou/mm3 (0.0-0.2); Basophils % (Auto) 1 % (0-2.5); Eosinophils # (Auto) 0.0 Thou/mm3 (0.0-0.5); Eosinophils % (Auto) 0 % (0-10); Hematocrit 37.3 % (41.0-53.0); Hemoglobin 13.0 g/dL (13.5-16.0); Immature Granulocytes Auto 0.02 Thou/mm3 (0.00-0.00); Lymphocytes # (Auto) 1.5 Thou/mm3 (1.0-4.8); Lymphocytes % (Auto) 17 % (10-50); Mean Corpuscular HGB Conc 34.9 g/dl (31.0-37.0); Mean Corpuscular Hemoglobin 31.0 pg (25.0-35.0); Mean Corpuscular Volume 89 fL (80-100); Monocytes # (Auto) 0.8 Thou/mm3 (0.0-0.8); Monocytes % (Auto) 9 % (0-12); Neutrophils # (Auto) 6.4 Thou/mm3 (1.8-7.7); Neutrophils % (Auto) 73 % (37-80); Nucleated Red Blood Cell # 0.00 Thou/mm3 (0.00-0.00); Nucleated Red Blood Cell % 0 /100 WBC (0); Platelet Count 260 Thou/mm3 (140-440); RDW Standard Deviation 44.3 fL (35.1-43.9); Red Blood Count 4.20 Miln/mm3 (4.50-5.90); White Blood Count 8.7 Thou/mm3 (3.8-10.6)
[2024-09-02] MEDS: AMPICILLIN/SULBAC INJ 3 GM in SODIUM CHLORIDE 0.9% (POP) 100 ML IV ×3 (05:18→17:35)
[2024-09-02] MEDS: RINGERS LACTATED 1000 ML 1,000 ML 75 ML IV (05:18)
[2024-09-02 05:32] LABS: Alanine Aminotransferase 24 U/L (10-49); Albumin, Serum 4.1 gm/dL (3.4-4.8); Albumin/Globulin Ratio 1.9 (1.2-2.2); Alkaline Phosphatase 132 U/L (46-116); Anion Gap 7 (7-16); Aspartate Amino Transferase 28 U/L (0-34); BUN/Creatinine Ratio 29 Ratio (12-20); Bilirubin,Total 0.4 mg/dL (0.3-1.2); Blood Urea Nitrogen 23 mg/dL (9-23); Calcium 10.0 mg/dL (8.3-10.6); Calcium (Corrected) 10.0 mg/dL (8.5-10.1); Carbon Dioxide 27.1 mMol/L (20.0-31.0); Chloride 108 mMol/L (98-107); Creatinine (Component) 0.8 mg/dL (0.6-1.3); Globulin 2.2 gm/dL (2.3-3.5); Glucose 93 mg/dL (74-106); Magnesium 2.0 mg/dL (1.6-2.6); Osmolality,Calculated 286 (275-295); Potassium 3.9 mMol/L (3.4-5.1); Sodium 142 mMol/L (136-145); Total Protein 6.3 gm/dL (5.7-8.2); eGFR > 60 See Note
--- NOTE | 2024-09-02 07:27 | PC.NURSE ---
Received report from Naa BRICENO and assumed care of patient. Patient resting in bed with no signs of distress and caregiver at bedside.
--- NOTE | 2024-09-02 10:24 | PC.CC ---
FAN completed an initial assessment with the pts caregiver Vijaya Guallpa with [facility]. Vijaya reported the following: Pt is not conserved but is a client of the [facility]. Pts [facility] worker is Rodolfo Jaffe located at the [facility] office. Pt uses a wheel chair to ambulate and cannot walk at all. Pts means of ambulating is via the wheel chair. He does not cook, clean, or bathe on his own. Pt is able to communicate and makes his own decisions. Pt is a Full Code. There is no Power of Photo Lab Technician in place. Pts PCP is Jazmine Rankin at [facility] in [place] [phone]. Pts pharmacy of choice is called [facility]. Pt resides at a half-way named [facility] [phone]. His preparation room manager at [facility] is Lily Beth. Plan is for the pt to return to the half-way upon d/c. Person to Notify is Vijaya Guallpa [phone].
--- NOTE | 2024-09-02 11:47 | PCS.ST ---
Swallow Evaluation completed. See report for details. Mild wen-pharyngeal dysphagia. Recommend Dysphagia 1/ mildly thick liquids. ST will follow
[2024-09-02] MEDS: GLYCERIN, ADULT 1 EA SUPP 1 EACH PR (12:26)
--- NOTE | 2024-09-02 12:28 | PC.NURSE ---
PATIENT SEEN BY SPEECH THERAPIST AND CLEARED.
--- NOTE | 2024-09-02 12:28 | PC.NURSE ---
REPORT CALLED AND GIVEN TO GIANNI BRICENO AT [facility].
--- NOTE | 2024-09-02 13:22 | PC.NURSE ---
admitted from ED with caregiver.able to get some pt.information from caregiver and previous chart.pt. makes sounds occ.pt. bedridden.no resp. distress noted.notified B/P 88/54,MAP 66,will continue to monitor.
--- NOTE | 2024-09-02 15:40 | PD.RESPRO ---
Documentation for date of: 09/02/24 Subjective Subjective Interval history: Overnight admission for patient with cerebral palsy, aspiration pneumonia s/p choking event at the detention.?Patient seen and examined at bedside this AM.?Patient is nonverbal, but is awake and responsive, moving in the bed, appearing happy. He is saturating well on room air, vitals stable. Labs and vitals were reviewed.?No fevers. He is on IV Unasyn. Speech therapy to evaluate patient. Per caregiver at bedside, patient was able to have 2 bowel movements since coming into the ED. Earlier, fecal disimpaction by the ED physician had been unsuccessful. Abdomen still feels slightly firm so added additional glycerin suppository. GI was consulted on admission due to the rectal thickening and recommended Golytely for additional stool clearance. Patient is known to have chronic constipation per caregiver. Review of systems otherwise negative except what is mentioned above. Exam Vital Signs Temp Pulse Resp BP Pulse Ox O2 Del Method O2 Flow Rate 98.4 F 67 17 104/75 93 L Room Air 2 09/02/24 12:17 09/02/24 12:17 09/02/24 12:17 09/02/24 12:17 09/02/24 12:17 09/02/24 12:17 09/02/24 07:30 Narrative Exam Physical Exam General: Awake, spontaneous movements, happy. Cerebral palsy, nonverbal. HEENT: Normocephalic, atraumatic, mucous membranes moist. Heart: Regular rate and rhythm, normal S1 and S2, no murmurs. Lungs: Clear to auscultation with no wheezing or crackles. Abdomen: Firm and tense but not concerning for peritoneal signs, nondistended, nontender, positive bowel sounds. ?No guarding or rebound tenderness. Neurologic: Alert and oriented x3, no gross neurological deficit, and patient able to move all 4 extremities. Extremities: Contracted feet. Moves extremities spontaneously. Skin: No rash or ecchymoses. Objective Labs 09/02/24 04:56 09/02/24 04:56 Labs: Laboratory Results - last 24 hr 09/01/24 09/02/24 19:44 04:56 WBC 7.3 8.7 RBC 4.53 4.20 L Hgb 14.0 13.0 L Hct 40.2 L 37.3 L MCV 89 89 MCH 30.9 31.0 MCHC 34.8 34.9 RDW Std Deviation 44.5 H 44.3 H Plt Count 274 260 Neut % (Auto) 65 73 Lymph % (Auto) 25 17 [place] % (Auto) 7 9 Eos % (Auto) 1 0 Baso % (Auto) 1 1 Neut # (Auto) 4.8 6.4 Lymph # (Auto) 1.8 1.5 [place] # (Auto) 0.5 0.8 Eos # (Auto) 0.1 0.0 Baso # (Auto) 0.1 0.1 Immature Gran # (Auto) 0.02 H 0.02 H Absolute Nucleated RBC 0.00 0.00 Immature Gran % 0 0 Nucleated RBC % 0 0 Sodium 141 142 Potassium 3.4 3.9 D Chloride 106 108 H Carbon Dioxide 26.2 27.1 Anion Gap 9 7 BUN 24 H 23 Creatinine 0.8 0.8 Estim Creat Clear Calc Not Performed. Not Performed. eGFR > 60 > 60 BUN/Creatinine Ratio 30 H 29 H Glucose 137 H 93 Calculated Osmolality 287 286 Calcium 9.9 10.0 Corrected Calcium 9.9 10.0 Magnesium 2.0 Total Bilirubin 0.3 0.4 AST 33 28 ALT 28 24 Alkaline Phosphatase 145 H 132 H Troponin I < 0.020 B-Natriuretic Peptide 32 Total Protein 6.7 6.3 Albumin 4.3 4.1 Globulin 2.4 2.2 L Albumin/Globulin Ratio 1.8 1.9 Quality Measures Quality Measures none Assessment & Plan Assessment Current Active Medications: Generic Name Dose Route Start Last Admin Trade Name Freq PRN Reason Stop Dose Admin Acetaminophen 650 mg 09/02/24 03:53 Acetaminophen Supp 650 Mg Supp TN 10/02/24 03:52 Q6HR PRN Fever > 100.4 Lactated Ringer's 1,000 mls @ 75 mls/hr 09/02/24 04:00 09/02/24 05:18 Lactated Ringers IV 09/02/24 17:19 75 mls/hr .[id number] CHARLES Administration Ampicillin Sodium/Sulbactam 100 mls @ 200 mls/hr 09/02/24 06:00 09/02/24 13:56 Sodium 3 gm/ Sodium Chloride IV 09/09/24 05:59 200 mls/hr Q6HR CHARLES Administration Ondansetron HCl 4 mg 09/02/24 03:53 Ondansetron Inj 2 Mg/Ml Inj 2 Ml IVP 10/02/24 03:52 Q6H PRN NAUSEA OR VOMITING Protocol Pantoprazole Sodium 40 mg 09/02/24 09:00 09/02/24 12:26 Pantoprazole Inj 40 Mg Vial IVP 10/02/24 08:59 40 mg QDAY CHARLES Administration Plan 59-year-old male with past medical history of developmental delay nonverbal at baseline, cerebral palsy, chronic constipation, previous GI bleed, and GERD was admitted to the hospital on 09/02/2024 for severe constipation and aspiration pneumonia. #Possible Aspiration pneumonia #Acute hypoxic respiratory failure, resolved #Choking episode Patient had episode of choking today with dinnertime and patient's caregiver stated that was that he was eating too fast. Patient's chest x-ray that showed right base pneumonia and patient's chest CT also showed changes concerning for pneumonia. Patient has no WBC elevation at this time Patient was mildly hypoxic when he came into the ED and was placed on oxy mask Consider pneumonitis versus aspiration pneumonia Plan: -Continue Unasyn 3 g q6h -Aspiration precautions -Speech therapy referral -NPO until speech therapy sees the patient #Severe constipation #Possible stercoral colitis Patient has a history of constipation and takes multiple medications for this, but as per patient's caregiver has been having loose bowel movements only. CT abdomen/pelvis with preliminary showed large stool ball distending the rectum with circumferential rectal wall thickening and perirectal fat stranding which is worrisome for stercoral colitis Patient's bowel movement most likely overflow diarrhea ED physician attempted rectal disimpaction, but was unsuccessful at this time. Plan: -Glycerin suppository -GI consulted, appreciate recommendations -Continue with bowel prep for disimpaction Disposition: Patient admitted to med surg for constipation and Aspiration PNA . Diet: NPO GI prophylaxis: protonix DVT prophylaxis: SCDs Code: Full code as no documentation of patient's code status, patient is conserved Patient plan of care was discussed with the attending physician, Dr. Little. Nancy To, PGY-2 Attending Provider Attestation/Addendum I have discussed and was present for the essential components of the history, physical examination, diagnosis, and treatment plan with the resident. I agree with the patient's care as documented by the resident and amended herein by me. Kings Little, DO. Patient seen and evaluated this AM. Patient doing very well in the morning, he was alert laughing, seed yeast operator from his facility was at bedside. Blood pressure was reported to be a bit soft however MAP was 66. Has been rather soft throughout the day but stable. Patient on room air, SpO2 94%, patient has been afebrile through his hospital stay. Significant labs today include a normal WBC, stable hemoglobin. Will continue Unasyn for now for aspiration pneumonia, speech therapy did perform a swallow evaluation today, recommended dysphagia 1 with mildly thick liquids which will be added. A bowel regimen will also be placed. Possible DC in the next 1 to 2 days back to his care facility pending continued improvement. Although this document has been carefully reviewed, there may still be some phonetic and other typographical errors. These errors are purely grammatical due to imperfections in the software program and should not be construed in any way to compromise the substance of the patient's medical care during this visit.
--- NOTE | 2024-09-02 17:36 | PD.IMCONS ---
HPI Data of Consult Requesting Physician: Ridge Little DO Primary Care Provider: Alfredo Fernandez PA-C Consult Narrative Reason for consult: Abnormal CT AP, choking spells History of present illness: 59 years old male evaluated at the request of the internal medicine team CT scan of the abdomen pelvis shows stool impaction in the rectum and rectosigmoid junction with thickening of the rectal wall patient was admitted with choking spells. He required Heimlich maneuver at the nursing facility but nothing came out He was found to be in hypoxic respiratory failure possible aspiration pneumonia currently on Unasyn Patient has a history of developmental delay no history obtainable cerebral palsy chronic constipation cc:: cc: Ridge Little DO Review of Systems Review of Systems ROS Unobtainable: unobtainable due to medical condition Past Medical History Surgical History OTHER SURGICAL HX: As in the history of present illness Meds Home Medications and Allergies Home Medications ?Medication ?Instructions ?Recorded ?Confirmed ?Type atorvastatin 20 mg tablet (Lipitor) 20 mg PO HS #0 tabs 03/08/17 09/02/24 History docusate sodium 250 mg capsule 250 mg PO BID #0 caps 03/08/17 09/02/24 History (DOK) melatonin 5 mg tablet 10 mg PO HS #0 tabs 03/08/17 09/02/24 History levothyroxine 75 mcg capsule 75 mcg PO QDAY 09/20/20 09/02/24 History trazodone 50 mg tablet 50 mg PO HS 09/20/20 09/02/24 History azelastine 0.05 % eye drops 1 drp ophthalmic (eye) BID 09/02/24 09/02/24 History polyethylene glycol 3350 17 4 g PO QDAY 09/02/24 09/02/24 History gram/dose oral powder (Miralax) quetiapine 25 mg tablet (Seroquel) 25 mg PO QDAY 09/02/24 09/02/24 History trazodone 100 mg tablet 100 mg PO QDAY 09/02/24 09/02/24 History Allergies Allergy/AdvReac Type Severity Reaction Status Date / Time No Known Allergies Allergy Verified 09/20/20 11:54 Exam Vital Signs Temp Pulse Resp BP Pulse Ox O2 Del Method O2 Flow Rate 97.4 F 62 18 97/48 L 94 L Room Air 2 09/02/24 16:00 09/02/24 16:00 09/02/24 16:00 09/02/24 16:00 09/02/24 16:00 09/02/24 12:17 09/02/24 07:30 Constitutional Comments: Chronically ill-appearing Routine Respiratory Exam Comments: Scattered rhonchi Routine Abdominal Exam Comments: Positive bowel sounds Results Labs 09/02/24 04:56 09/02/24 04:56 Labs: Short CBC 09/01/24 09/02/24 Range/Units 19:44 04:56 WBC 7.3 8.7 (3.8-10.6) Thou/mm3 Hgb 14.0 13.0 L (13.5-16.0) g/dL Hct 40.2 L 37.3 L (41.0-53.0) % Plt Count 274 260 (140-440) Thou/mm3 BMP 09/01/24 09/02/24 19:44 04:56 Sodium 141 142 Potassium 3.4 3.9 D Chloride 106 108 H Carbon Dioxide 26.2 27.1 BUN 24 H 23 Creatinine 0.8 0.8 Glucose 137 H 93 Calcium 9.9 10.0 Cardiac Enzymes 09/01/24 Range/Units 19:44 Troponin I < 0.020 (0.0-0.045) ng/mL Liver Function 09/01/24 09/02/24 Range/Units 19:44 04:56 Total Bilirubin 0.3 0.4 (0.3-1.2) mg/dL AST 33 28 (0-34) U/L ALT 28 24 (10-49) U/L Alkaline Phosphatase 145 H 132 H (46-116) U/L Albumin 4.3 4.1 (3.4-4.8) gm/dL Assessment and Plan Additional Assessment & Plan Additional Plan: # Stool impaction leading to rectal thickening most likely Recommend manual disimpaction followed by GoLytely either via NGT or orally after speech pathology evaluation will follow the patient # Choking with food May need upper endoscopy prior to discharge for further evaluation with possible esophageal dilatation for esophageal stricture exist It is difficult to evaluate this patient from lack of history. Other medical problems include Developmentally delayed Cerebral palsy Chronic constipation Thank you very much for the opportunity to participate in the care of this patient
[2024-09-02] MEDS: NA SU/NAHCO3/KC/PEG (Golytely) 4,000 ML BTL 4000 ML PO (20:06)
[2024-09-03] VITALS (9 sets, daily range): BP systolic 122–159; BP diastolic 51–96; PULSE 73–100; RESP 15–28; TEMP 36.1–36.7; O2SAT 85–99
[2024-09-03] MEDS: AMPICILLIN/SULBAC INJ 3 GM in SODIUM CHLORIDE 0.9% (POP) 100 ML IV ×4 (00:10→17:23)
--- NOTE | 2024-09-03 06:30 | PC.NURSE ---
Patient was repeatedly offerer and encouraged to drink Golytely throughout the night but consistently refused. Patient remained non-compliant with Golytely.
[2024-09-03 08:04] LABS: Alanine Aminotransferase 22 U/L (10-49); Albumin, Serum 3.5 gm/dL (3.4-4.8); Albumin/Globulin Ratio 1.5 (1.2-2.2); Alkaline Phosphatase 116 U/L (46-116); Anion Gap 6 (7-16); Aspartate Amino Transferase 41 U/L (0-34); BUN/Creatinine Ratio 18 Ratio (12-20); Bilirubin,Total 0.7 mg/dL (0.3-1.2); Blood Urea Nitrogen 14 mg/dL (9-23); Calcium 8.9 mg/dL (8.3-10.6); Calcium (Corrected) 9.3 mg/dL (8.5-10.1); Carbon Dioxide 26.6 mMol/L (20.0-31.0); Chloride 110 mMol/L (98-107); Creatinine (Component) 0.8 mg/dL (0.6-1.3); Globulin 2.4 gm/dL (2.3-3.5); Glucose 80 mg/dL (74-106); Magnesium 1.7 mg/dL (1.6-2.6); Osmolality,Calculated 284 (275-295); Potassium 4.6 mMol/L (3.4-5.1); Sodium 143 mMol/L (136-145); Total Protein 5.9 gm/dL (5.7-8.2); eGFR > 60 See Note
[2024-09-03 08:55] LABS: Basophils # (Auto) 0.1 Thou/mm3 (0.0-0.2); Basophils % (Auto) 1 % (0-2.5); Eosinophils # (Auto) 0.1 Thou/mm3 (0.0-0.5); Eosinophils % (Auto) 1 % (0-10); Hematocrit 38.3 % (41.0-53.0); Hemoglobin 13.1 g/dL (13.5-16.0); Immature Granulocytes Auto 0.02 Thou/mm3 (0.00-0.00); Lymphocytes # (Auto) 2.0 Thou/mm3 (1.0-4.8); Lymphocytes % (Auto) 28 % (10-50); Mean Corpuscular HGB Conc 34.2 g/dl (31.0-37.0); Mean Corpuscular Hemoglobin 31.3 pg (25.0-35.0); Mean Corpuscular Volume 92 fL (80-100); Monocytes # (Auto) 0.7 Thou/mm3 (0.0-0.8); Monocytes % (Auto) 10 % (0-12); Neutrophils # (Auto) 4.2 Thou/mm3 (1.8-7.7); Neutrophils % (Auto) 61 % (37-80); Nucleated Red Blood Cell # 0.00 Thou/mm3 (0.00-0.00); Nucleated Red Blood Cell % 0 /100 WBC (0); Platelet Count 232 Thou/mm3 (140-440); RDW Standard Deviation 45.8 fL (35.1-43.9); Red Blood Count 4.18 Miln/mm3 (4.50-5.90); White Blood Count 7.0 Thou/mm3 (3.8-10.6)
--- NOTE | 2024-09-03 10:55 | PC.SS ---
Late note 09-03-24: SS met with patient and caregiver regarding patient's d/c plan.? Pt is alert but confused.? Pt was admitted for Aspiration PNA And Sever Constipation.? Caregiver confirmed demographic and contact information is correct on facesheet.? Pt is from [facility].? Pt transfers into wheelchair and has motorized wheelchair.? Pt requires assistance with all ADLs.? SS also spoke to nursing home entry level truck driver, Vijaya Marte who explained pt is not conserved and the medical technicians from [facility] helps make medical decisions.? Patient?s utilizes [facility].? Patient will return to nursing home upon d/c and they will provide transportation.?? D/C plan:? Return home Emergency contact:? [facility], phone# [phone] or Pardeep Marte, phone# [phone] PCP:? [facility] Address:? Correct on facesheet
--- NOTE | 2024-09-03 14:53 | ESPR_ITS ---
Documentation for date of: 09/03/24 Subjective Subjective Interval history: Patient evaluated at bedside, currently on GoLytely prep, hardwood floor installer present at bedside, encouraging to take sips of GoLytely. Patient is pending a colonoscopy, Dr. Squires is following. Currently on IV Unasyn for treatment of aspiration pneumonia. Exam Vital Signs Temp Pulse Resp BP Pulse Ox O2 Del Method O2 Flow Rate 97.8 F 96 18 159/82 H 93 L Room Air 2 09/03/24 12:09/03/24 12:09/03/24 12:09/03/24 12:09/03/24 12:09/03/24 12:09/02/24 07:30 Narrative Exam Physical Exam General: Awake, spontaneous movements, happy. Cerebral palsy, nonverbal. HEENT: Normocephalic, atraumatic, mucous membranes moist. Heart: Regular rate and rhythm, normal S1 and S2, no murmurs. Lungs: Clear to auscultation with no wheezing or crackles. Abdomen: Firm and tense but not concerning for peritoneal signs, nondistended, nontender, positive bowel sounds. ?No guarding or rebound tenderness. Neurologic: Alert and oriented x3, no gross neurological deficit, and patient able to move all 4 extremities. Extremities: Contracted feet. Moves extremities spontaneously. Skin: No rash or ecchymoses. Objective Labs 09/04/24 05:08 09/04/24 05:08 Labs: Laboratory Results - last 24 hr 09/03/24 09/03/24 07:06 08:12 WBC 7.0 RBC 4.18 L Hgb 13.1 L Hct 38.3 L MCV 92 MCH 31.3 MCHC 34.2 RDW Std Deviation 45.8 H Plt Count 232 Neut % (Auto) 61 Lymph % (Auto) 28 [place] % (Auto) 10 Eos % (Auto) 1 Baso % (Auto) 1 Neut # (Auto) 4.2 Lymph # (Auto) 2.0 [place] # (Auto) 0.7 Eos # (Auto) 0.1 Baso # (Auto) 0.1 Immature Gran # (Auto) 0.02 H Absolute Nucleated RBC 0.00 Immature Gran % 0 Nucleated RBC % 0 Sodium 143 Potassium 4.6 D Chloride 110 H Carbon Dioxide 26.6 Anion Gap 6 L BUN 14 Creatinine 0.8 Estim Creat Clear Calc Not Performed. eGFR > 60 BUN/Creatinine Ratio 18 Glucose 80 Calculated Osmolality 284 Calcium 8.9 Corrected Calcium 9.3 Magnesium 1.7 Total Bilirubin 0.7 AST 41 H ALT 22 Alkaline Phosphatase 116 Total Protein 5.9 Albumin 3.5 D Globulin 2.4 Albumin/Globulin Ratio 1.5 Quality Measures Quality Measures none Assessment & Plan Assessment Current Active Medications: Generic Name Dose Route Start Last Admin Trade Name Freq PRN Reason Stop Dose Admin Acetaminophen 650 mg 09/02/24 03:53 Acetaminophen Supp 650 Mg Supp [place] 10/02/24 03:52 Q6HR PRN Fever > 100.4 Ampicillin Sodium/Sulbactam 100 mls @ 200 mls/hr 09/02/24 06:00 09/03/24 11:50 Sodium 3 gm/ Sodium Chloride IV 09/09/24 05:59 200 mls/hr Q6HR CHARLES Administration Ondansetron HCl 4 mg 09/02/24 03:53 Ondansetron Inj 2 Mg/Ml Inj 2 Ml IVP 10/02/24 03:52 Q6H PRN NAUSEA OR VOMITING Protocol Pantoprazole Sodium 40 mg 09/02/24 09:00 09/03/24 08:08 Pantoprazole Inj 40 Mg Vial IVP 10/02/24 08:59 40 mg QDAY CHARLES Administration Plan 59-year-old male with past medical history of developmental delay nonverbal at baseline, cerebral palsy, chronic constipation, previous GI bleed, and GERD was admitted to the hospital on 09/02/2024 for severe constipation and aspiration pneumonia. #Possible Aspiration pneumonia #Acute hypoxic respiratory failure, resolved #Choking episode Patient had episode of choking today with dinnertime and patient's caregiver stated that was that he was eating too fast. Patient's chest x-ray that showed right base pneumonia and patient's chest CT also showed changes concerning for pneumonia. Patient has no WBC elevation at this time Patient was mildly hypoxic when he came into the ED and was placed on oxy mask Consider pneumonitis versus aspiration pneumonia Plan: -Continue Unasyn 3 g q6h -Aspiration precautions -Speech therapy referral #Severe constipation #Possible stercoral colitis Patient has a history of constipation and takes multiple medications for this, but as per patient's caregiver has been having loose bowel movements only. CT abdomen/pelvis with preliminary showed large stool ball distending the rectum with circumferential rectal wall thickening and perirectal fat stranding which is worrisome for stercoral colitis Patient's bowel movement most likely overflow diarrhea ED physician attempted rectal disimpaction, but was unsuccessful at this time. Plan: -Glycerin suppository -GI consulted, appreciate recommendations -Continue with bowel prep for colonoscopy Disposition: Patient admitted to med surg for constipation and Aspiration PNA . Diet: On GoLytely prep GI prophylaxis: protonix DVT prophylaxis: SCDs Code: Full code as no documentation of patient's code status, patient is conserved Patient plan of care was discussed with the attending physician, Dr. Little. Gerardo PGY-2 Attending Provider Attestation/Addendum I have discussed and was present for the essential components of the history, physical examination, diagnosis, and treatment plan with the resident. I agree with the patient's care as documented by the resident and amended herein by me. Kings Little DO. Although this document has been carefully reviewed, there may still be some phonetic and other typographical errors. These errors are purely grammatical due to imperfections in the software program and should not be construed in any way to compromise the substance of the patient's medical care during this visit.
[2024-09-03] MEDS: NA SU/NAHCO3/KC/PEG (Golytely) 4,000 ML BTL 4000 ML PO (18:45)
--- NOTE | 2024-09-03 19:22 | XR_ITS ---
Examination: AP chest single view TECHNIQUE: AP portable upright chest single view Date and time: September 03, 2024 1939 hours Comparison September 01, 2024 INDICATIONS: Shortness of breath weakness today. FINDINGS: Normal heart size Reduced inspiratory effort Minor subsegmental atelectasis left No pneumonia or pulmonary edema IMPRESSION: Poor inspiratory effort chest x-ray
--- NOTE | 2024-09-03 20:01 | PC.NURSE ---
rn and caregiver from [facility] helped changed pt then caregiver went home. pt on nilson.
--- NOTE | 2024-09-03 20:11 | ESPR_ITS ---
Documentation for date of: 09/03/24 Subjective Subjective Interval history: Patient was scheduled for a colonoscopy but is not clear second gallon GoLytely started Exam Vital Signs Temp Pulse Resp BP Pulse Ox O2 Del Method O2 Flow Rate 97.3 F 99 17 128/96 H 95 Room Air 2 09/03/24 16:00 09/03/24 16:00 09/03/24 16:00 09/03/24 16:00 09/03/24 16:00 09/03/24 16:00 09/02/24 07:30 Objective Labs 09/03/24 08:12 09/03/24 07:06 Labs: Laboratory Results - last 24 hr 09/03/24 09/03/24 07:06 08:12 WBC 7.0 RBC 4.18 L Hgb 13.1 L Hct 38.3 L MCV 92 MCH 31.3 MCHC 34.2 RDW Std Deviation 45.8 H Plt Count 232 Neut % (Auto) 61 Lymph % (Auto) 28 [place] % (Auto) 10 Eos % (Auto) 1 Baso % (Auto) 1 Neut # (Auto) 4.2 Lymph # (Auto) 2.0 [place] # (Auto) 0.7 Eos # (Auto) 0.1 Baso # (Auto) 0.1 Immature Gran # (Auto) 0.02 H Absolute Nucleated RBC 0.00 Immature Gran % 0 Nucleated RBC % 0 Sodium 143 Potassium 4.6 D Chloride 110 H Carbon Dioxide 26.6 Anion Gap 6 L BUN 14 Creatinine 0.8 Estim Creat Clear Calc Not Performed. eGFR > 60 BUN/Creatinine Ratio 18 Glucose 80 Calculated Osmolality 284 Calcium 8.9 Corrected Calcium 9.3 Magnesium 1.7 Total Bilirubin 0.7 AST 41 H ALT 22 Alkaline Phosphatase 116 Total Protein 5.9 Albumin 3.5 D Globulin 2.4 Albumin/Globulin Ratio 1.5 Impressions Impression: Abnormal CT scan of the abdomen pelvis Stool impaction Continue GoLytely prep Assessment & Plan A&P Narrative # Stool impaction leading to rectal thickening most likely Recommend manual disimpaction followed by GoLytely either via NGT or orally after speech pathology evaluation will follow the patient # Choking with food May need upper endoscopy prior to discharge for further evaluation with possible esophageal dilatation for esophageal stricture exist It is difficult to evaluate this patient from lack of history. Other medical problems include Developmentally delayed Cerebral palsy Chronic constipation Thank you very much for the opportunity to participate in the care of this patient Time Spent With Patient Time: Total time spent is greater than 50% in coordination of care (as documented) at patient's floor/unit and/or counseling patient:
--- NOTE | 2024-09-03 21:34 | PC.NURSE ---
pt removed oxymask. 90% O2 sat on room air- Applied O2 inh on at 3L/min/nc.
[2024-09-03 21:42] LABS: Base Excess, Venous 6 (-3-3); O2 Saturation, Venous 90 % (96-97); PCO2, Venous 37 mmHg (36-56); PO2, Venous 55 mmHg (15-58); pH, Venous 7.51 (7.33-7.66)
--- NOTE | 2024-09-03 22:42 | EVENTNT_ITS ---
Documentation for date of: 09/03/24 Event Note Event Note: 09/03/2024: Rapid response called sometime around 7:15 PM for patient desaturating to an oxygen of 85%. Patient seen and assessed in hospital bed with no mental delay, awake with patent airway/breathing/circulation. Patient was being prepped for GI with GoLytely and belief is that he most likely aspirated some of the fluid. motor vehicle technician was bedside along with the nurse and the patient was put in a sitting position with increase of supplemental oxygen from 5 L to 9 L. Patient's oxygenation improved to around 90 at which point nonrebreather was initiated. Patient's vitals improved afterwards with SpO2 of 99 on 15L nonrebreather. ABG and chest x-ray were ordered during the rapid and are largely unremarkable. Will continue to monitor for any acute changes. Siddharth Rodriguez, DO PGY-2 Internal Medicine - [facility]
[2024-09-04] VITALS (17 sets, daily range): BP systolic 90–132; BP diastolic 54–74; PULSE 51–73; RESP 12–92; TEMP 36.1–36.7; O2SAT 91–99
[2024-09-04] MEDS: AMPICILLIN/SULBAC INJ 3 GM in SODIUM CHLORIDE 0.9% (POP) 100 ML IV ×5 (01:53→23:55)
--- NOTE | 2024-09-04 04:13 | PC.NURSE ---
[facility] on 09/04/24 from 02:00am to 03:00am.
[2024-09-04 06:06] LABS: Basophils # (Auto) 0.0 Thou/mm3 (0.0-0.2); Basophils % (Auto) 0 % (0-2.5); Eosinophils # (Auto) 0.0 Thou/mm3 (0.0-0.5); Eosinophils % (Auto) 0 % (0-10); Hematocrit 34.9 % (41.0-53.0); Hemoglobin 11.9 g/dL (13.5-16.0); Immature Granulocytes Auto 0.06 Thou/mm3 (0.00-0.00); Lymphocytes # (Auto) 1.8 Thou/mm3 (1.0-4.8); Lymphocytes % (Auto) 18 % (10-50); Mean Corpuscular HGB Conc 34.1 g/dl (31.0-37.0); Mean Corpuscular Hemoglobin 31.0 pg (25.0-35.0); Mean Corpuscular Volume 91 fL (80-100); Monocytes # (Auto) 0.6 Thou/mm3 (0.0-0.8); Monocytes % (Auto) 6 % (0-12); Neutrophils # (Auto) 7.3 Thou/mm3 (1.8-7.7); Neutrophils % (Auto) 74 % (37-80); Nucleated Red Blood Cell # 0.00 Thou/mm3 (0.00-0.00); Nucleated Red Blood Cell % 0 /100 WBC (0); Platelet Count 213 Thou/mm3 (140-440); RDW Standard Deviation 45.2 fL (35.1-43.9); Red Blood Count 3.84 Miln/mm3 (4.50-5.90); White Blood Count 9.8 Thou/mm3 (3.8-10.6)
[2024-09-04 07:10] LABS: Alanine Aminotransferase 19 U/L (10-49); Albumin, Serum 3.3 gm/dL (3.4-4.8); Albumin/Globulin Ratio 1.5 (1.2-2.2); Alkaline Phosphatase 107 U/L (46-116); Anion Gap 8 (7-16); Aspartate Amino Transferase 31 U/L (0-34); BUN/Creatinine Ratio 11 Ratio (12-20); Bilirubin,Total 0.7 mg/dL (0.3-1.2); Blood Urea Nitrogen 8 mg/dL (9-23); Calcium 8.8 mg/dL (8.3-10.6); Calcium (Corrected) 9.4 mg/dL (8.5-10.1); Carbon Dioxide 28.4 mMol/L (20.0-31.0); Chloride 109 mMol/L (98-107); Creatinine (Component) 0.7 mg/dL (0.6-1.3); Globulin 2.2 gm/dL (2.3-3.5); Glucose 88 mg/dL (74-106); Magnesium 1.6 mg/dL (1.6-2.6); Osmolality,Calculated 286 (275-295); Phosphorous 2.7 mg/dL (2.4-5.1); Potassium 3.1 mMol/L (3.4-5.1); Sodium 145 mMol/L (136-145); Total Protein 5.5 gm/dL (5.7-8.2); eGFR > 60 See Note
--- NOTE | 2024-09-04 09:20 | PC.SS ---
Follow up note: Pt had rapid response yesterday. Colonoscopy pending. Pt will return to [facility] upon dc.
[2024-09-04] MEDS: POTASSIUM CHL 10 mEq IVPB 10 MEQ/100 ML BAG 100 MEQ IV ×2 (10:27→11:30)
--- NOTE | 2024-09-04 13:41 | SUR.PHASEI ---
1341: Pt. arrived lethargic, doesn't wake to painful stimuli, vitals stable, breathing unlabored, no signs of distress, no dressing in place, no active bleed noted, report received from Joanie BRICENO.
--- NOTE | 2024-09-04 15:10 | SUR.PHASEI ---
1510: Pt. mentality back at baseline. Pt. awake and alert, no signs of distress, no dressing in place, no active bleed noted, pt. tolerated sips of juice well. Held pt. for over an hour due to him being lethargic the entire time, pt. was only waking up with painful stimuli and then drifted back to sleep. Gave report to Kanika BRICENO prior to transfer to room.
--- NOTE | 2024-09-04 15:49 | XR_ITS ---
Examination: AP chest single view Technique: AP portable semiupright chest single view Date and time: September 04, 2024, 1636 hours Comparison September 03, 2024. INDICATIONS: Post orogastric tube placement FINDINGS: Orogastric tube sidehole is above the GE junction Minor atelectasis left base. Normal heart size. IMPRESSION: Advance the orogastric tube 8 cm
[2024-09-04] MEDS: NA SU/NAHCO3/KC/PEG (Golytely) 4,000 ML BTL 4000 ML PO (18:00)
--- NOTE | 2024-09-04 18:18 | ESPR_ITS ---
Documentation for date of: 09/04/24 Subjective Subjective Interval history: Patient evaluated at bedside, currently saturating well on room air. No crackles on physical exam. Yesterday patient had rapid response when he aspirated on GoLytely. Chest x-ray was done which was negative for aspiration pneumonia, made patient n.p.o., prep was withheld, per GI recommendations, plan to do EGD to rule out possible stricture, and placement of NG tube to help with the GoLytely prep. Patient will have EGD later this afternoon. Exam Vital Signs Temp Pulse Resp BP Pulse Ox O2 Del Method O2 Flow Rate 97.8 F 59 L 17 126/74 96 Room Air 2 09/04/24 15:09/04/24 15:05 09/04/24 15:09/04/24 15:09/04/24 15:09/04/24 11:30 09/04/24 14:45 Narrative Exam Physical Exam General: Awake, spontaneous movements, happy. Cerebral palsy, nonverbal. HEENT: Normocephalic, atraumatic, mucous membranes moist. Heart: Regular rate and rhythm, normal S1 and S2, no murmurs. Lungs: Clear to auscultation with no wheezing or crackles. Abdomen: Firm and tense but not concerning for peritoneal signs, nondistended, nontender, positive bowel sounds. ?No guarding or rebound tenderness. Neurologic: Alert and oriented x3, no gross neurological deficit, and patient able to move all 4 extremities. Extremities: Contracted feet. Moves extremities spontaneously. Skin: No rash or ecchymoses. Objective Labs 09/04/24 05:08 09/04/24 05:08 Labs: Laboratory Results - last 24 hr 09/03/24 09/04/24 21:07 05:08 WBC 9.8 RBC 3.84 L Hgb 11.9 L Hct 34.9 L MCV 91 MCH 31.0 MCHC 34.1 RDW Std Deviation 45.2 H Plt Count 213 Neut % (Auto) 74 Lymph % (Auto) 18 [place] % (Auto) 6 Eos % (Auto) 0 Baso % (Auto) 0 Neut # (Auto) 7.3 Lymph # (Auto) 1.8 [place] # (Auto) 0.6 Eos # (Auto) 0.0 Baso # (Auto) 0.0 Immature Gran # (Auto) 0.06 H Absolute Nucleated RBC 0.00 Immature Gran % 1 H Nucleated RBC % 0 VBG pH 7.51 VBG pCO2 37 VBG pO2 55 VBG O2 Sat (Maryjo) 90 L VBG Base Excess 6 H Sodium 145 Potassium 3.1 L D Chloride 109 H Carbon Dioxide 28.4 Anion Gap 8 BUN 8 L Creatinine 0.7 Estim Creat Clear Calc Not Performed. eGFR > 60 BUN/Creatinine Ratio 11 L Glucose 88 Calculated Osmolality 286 Calcium 8.8 Corrected Calcium 9.4 Phosphorus 2.7 Magnesium 1.6 Total Bilirubin 0.7 AST 31 ALT 19 Alkaline Phosphatase 107 Total Protein 5.5 L Albumin 3.3 L Globulin 2.2 L Albumin/Globulin Ratio 1.5 ABG Interpretation ABG results: 09/03/24 21:07 VBG pH 7.51 VBG pCO2 37 VBG pO2 55 VBG Base Excess 6 H Quality Measures Quality Measures none Assessment & Plan Assessment Current Active Medications: Generic Name Dose Route Start Last Admin Trade Name Freq PRN Reason Stop Dose Admin Acetaminophen 650 mg 09/02/24 03:53 Acetaminophen Supp 650 Mg Supp [place] 10/02/24 03:52 Q6HR PRN Fever > 100.4 Ampicillin Sodium/Sulbactam 100 mls @ 200 mls/hr 09/02/24 06:00 09/04/24 17:19 Sodium 3 gm/ Sodium Chloride IV 09/09/24 05:59 200 mls/hr Q6HR CHARLES Administration Ondansetron HCl 4 mg 09/02/24 03:53 Ondansetron Inj 2 Mg/Ml Inj 2 Ml IVP 10/02/24 03:52 Q6H PRN NAUSEA OR VOMITING Protocol Pantoprazole Sodium 40 mg 09/02/24 09:00 09/04/24 08:48 Pantoprazole Inj 40 Mg Vial IVP 10/02/24 08:59 40 mg QDAY CHARLES Administration Plan 59-year-old male with past medical history of developmental delay nonverbal at baseline, cerebral palsy, chronic constipation, previous GI bleed, and GERD was admitted to the hospital on 09/02/2024 for severe constipation and aspiration pneumonia. #Possible Aspiration pneumonia #Acute hypoxic respiratory failure, resolved #Choking episode Patient had episode of choking today with dinnertime and patient's caregiver stated that was that he was eating too fast. Patient's chest x-ray that showed right base pneumonia and patient's chest CT also showed changes concerning for pneumonia. Patient has no WBC elevation at this time Patient was mildly hypoxic when he came into the ED and was placed on oxy mask Consider pneumonitis versus aspiration pneumonia Plan: -Continue Unasyn 3 g q6h -Aspiration precautions -Speech therapy referral #Severe constipation #Possible stercoral colitis Patient has a history of constipation and takes multiple medications for this, but as per patient's caregiver has been having loose bowel movements only. CT abdomen/pelvis with preliminary showed large stool ball distending the rectum with circumferential rectal wall thickening and perirectal fat stranding which is worrisome for stercoral colitis Patient's bowel movement most likely overflow diarrhea ED physician attempted rectal disimpaction, but was unsuccessful at this time. Plan: -Glycerin suppository -GI consulted, appreciate recommendations -Continue with bowel prep for colonoscopy, patient might require EGD prior to colonoscopy for NG tube placement and ruling out stricture. Disposition: Patient admitted to med surg for constipation and Aspiration PNA . Diet: On GoLytely prep GI prophylaxis: protonix DVT prophylaxis: SCDs Code: Full code as no documentation of patient's code status, patient is conserved Patient plan of care was discussed with the attending physician, Dr. Little. Quresh PGY-3 Attending Provider Attestation/Addendum I have discussed and was present for the essential components of the history, physical examination, diagnosis, and treatment plan with the resident. I agree with the patient's care as documented by the resident and amended herein by me. Kings Little DO. Although this document has been carefully reviewed, there may still be some phonetic and other typographical errors. These errors are purely grammatical due to imperfections in the software program and should not be construed in any way to compromise the substance of the patient's medical care during this visit.
[2024-09-05] VITALS: BP 110/81; PULSE 67; RESP 20; TEMP 36.8; O2SAT 99
[2024-09-05 04:00] VITALS: BP 117/61; PULSE 82; RESP 20; TEMP 37; O2SAT 99
[2024-09-05] MEDS: AMPICILLIN/SULBAC INJ 3 GM in SODIUM CHLORIDE 0.9% (POP) 100 ML IV ×3 (05:30→17:14)
[2024-09-05 06:21] LABS: Basophils # (Auto) 0.1 Thou/mm3 (0.0-0.2); Basophils % (Auto) 1 % (0-2.5); Eosinophils # (Auto) 0.1 Thou/mm3 (0.0-0.5); Eosinophils % (Auto) 2 % (0-10); Hematocrit 35.4 % (41.0-53.0); Hemoglobin 12.5 g/dL (13.5-16.0); Immature Granulocytes Auto 0.01 Thou/mm3 (0.00-0.00); Lymphocytes # (Auto) 1.8 Thou/mm3 (1.0-4.8); Lymphocytes % (Auto) 26 % (10-50); Mean Corpuscular HGB Conc 35.3 g/dl (31.0-37.0); Mean Corpuscular Hemoglobin 31.3 pg (25.0-35.0); Mean Corpuscular Volume 89 fL (80-100); Monocytes # (Auto) 0.7 Thou/mm3 (0.0-0.8); Monocytes % (Auto) 10 % (0-12); Neutrophils # (Auto) 4.2 Thou/mm3 (1.8-7.7); Neutrophils % (Auto) 62 % (37-80); Nucleated Red Blood Cell # 0.00 Thou/mm3 (0.00-0.00); Nucleated Red Blood Cell % 0 /100 WBC (0); Platelet Count 220 Thou/mm3 (140-440); RDW Standard Deviation 43.8 fL (35.1-43.9); Red Blood Count 4.00 Miln/mm3 (4.50-5.90); White Blood Count 6.8 Thou/mm3 (3.8-10.6)
[2024-09-05 06:37] LABS: Anion Gap 6 (7-16); BUN/Creatinine Ratio 10 Ratio (12-20); Blood Urea Nitrogen 7 mg/dL (9-23); Calcium 8.9 mg/dL (8.3-10.6); Carbon Dioxide 24.6 mMol/L (20.0-31.0); Chloride 110 mMol/L (98-107); Creatinine (Component) 0.7 mg/dL (0.6-1.3); Glucose 76 mg/dL (74-106); Osmolality,Calculated 278 (275-295); Phosphorous 2.8 mg/dL (2.4-5.1); Potassium 3.6 mMol/L (3.4-5.1); Sodium 141 mMol/L (136-145); eGFR > 60 See Note
[2024-09-05] MEDS: NA SU/NAHCO3/KC/PEG (Golytely) 4,000 ML BTL 4000 ML PO ×2 (07:50→21:55)
[2024-09-05 08:00] VITALS: BP 118/78; PULSE 78; RESP 18; TEMP 36.4; O2SAT 93
[2024-09-05 10:42] VITALS: BMI 23.1
[2024-09-05 12:00] VITALS: BP 122/69; PULSE 54; RESP 18; TEMP 36.4; O2SAT 93
[2024-09-05 16:00] VITALS: BP 156/87; PULSE 66; RESP 18; TEMP 36.4; O2SAT 95
--- NOTE | 2024-09-05 16:56 | ESPR_ITS ---
<Statement entered by Pat Duong MD - 09/12/24 14:54> I reviewed above note and agree with findings and plans. I have also personally examined the patient with medicine team and went over assessment and plan with medical team including director internal communications and resident physician. Documentation for date of: 09/05/24 Subjective Subjective Interval history: The patient evaluated bedside, seen post upper GI endoscopy, NG tube was placed for GoLytely prep, as patient was unable to tolerate prep, also aspirating on liquids, colonoscopy pending to evaluate for colon wall thickening. Soft restraints applied as patient trying to pull the G-tube. Exam Vital Signs Temp Pulse Resp BP Pulse Ox O2 Del Method O2 Flow Rate 97.6 F 66 18 156/87 H 95 Room Air 2 09/05/24 16:00 09/05/24 16:00 09/05/24 16:00 09/05/24 16:00 09/05/24 16:00 09/05/24 16:00 09/05/24 04:00 Narrative Exam Physical Exam General: Awake, spontaneous movements. Cerebral palsy, nonverbal. NG tube placed. Soft restraints applied as patient trying to pull the G-tube. HEENT: Normocephalic, atraumatic, mucous membranes moist. Heart: Regular rate and rhythm, normal S1 and S2, no murmurs. Lungs: Clear to auscultation with no wheezing or crackles. Abdomen: Firm and tense but not concerning for peritoneal signs, nondistended, nontender, positive bowel sounds. ?No guarding or rebound tenderness. Neurologic: Alert and oriented x3, no gross neurological deficit, and patient able to move all 4 extremities. Extremities: Contracted feet. Moves extremities spontaneously. Skin: No rash or ecchymoses. Objective Labs 09/05/24 05:18 09/05/24 05:18 Labs: Laboratory Results - last 24 hr 09/05/24 05:18 WBC 6.8 RBC 4.00 L Hgb 12.5 L Hct 35.4 L MCV 89 MCH 31.3 MCHC 35.3 RDW Std Deviation 43.8 Plt Count 220 Neut % (Auto) 62 Lymph % (Auto) 26 [place] % (Auto) 10 Eos % (Auto) 2 Baso % (Auto) 1 Neut # (Auto) 4.2 Lymph # (Auto) 1.8 [place] # (Auto) 0.7 Eos # (Auto) 0.1 Baso # (Auto) 0.1 Immature Gran # (Auto) 0.01 H Absolute Nucleated RBC 0.00 Immature Gran % 0 Nucleated RBC % 0 Sodium 141 Potassium 3.6 D Chloride 110 H Carbon Dioxide 24.6 Anion Gap 6 L BUN 7 L Creatinine 0.7 Estim Creat Clear Calc Not Performed. eGFR > 60 BUN/Creatinine Ratio 10 L Glucose 76 Calculated Osmolality 278 Calcium 8.9 Phosphorus 2.8 ABG Interpretation ABG results: 09/03/24 21:07 VBG pH 7.51 VBG pCO2 37 VBG pO2 55 VBG Base Excess 6 H Quality Measures Quality Measures none Assessment & Plan Assessment Current Active Medications: Generic Name Dose Route Start Last Admin Trade Name Freq PRN Reason Stop Dose Admin Acetaminophen 650 mg 09/02/24 03:53 Acetaminophen Supp 650 Mg Supp [place] 10/02/24 03:52 Q6HR PRN Fever > 100.4 Ampicillin Sodium/Sulbactam 100 mls @ 200 mls/hr 09/02/24 06:00 09/05/24 12:14 Sodium 3 gm/ Sodium Chloride IV 09/09/24 05:59 200 mls/hr Q6HR CHARLES Administration Ondansetron HCl 4 mg 09/02/24 03:53 Ondansetron Inj 2 Mg/Ml Inj 2 Ml IVP 10/02/24 03:52 Q6H PRN NAUSEA OR VOMITING Protocol Pantoprazole Sodium 40 mg 09/02/24 09:00 09/05/24 08:28 Pantoprazole Inj 40 Mg Vial IVP 10/02/24 08:59 40 mg QDAY CHARLES Administration Plan 59-year-old male with past medical history of developmental delay nonverbal at baseline, cerebral palsy, chronic constipation, previous GI bleed, and GERD was admitted to the hospital on 09/02/2024 for severe constipation and aspiration pneumonia. #Possible Aspiration pneumonia #Acute hypoxic respiratory failure, resolved #Choking episode Patient had episode of choking today with dinnertime and patient's caregiver stated that was that he was eating too fast. Patient's chest x-ray that showed right base pneumonia and patient's chest CT also showed changes concerning for pneumonia. Patient has no WBC elevation at this time Patient was mildly hypoxic when he came into the ED and was placed on oxy mask Consider pneumonitis versus aspiration pneumonia Plan: -Continue Unasyn 3 g q6h -Aspiration precautions -Speech therapy referral #Severe constipation #Possible stercoral colitis Patient has a history of constipation and takes multiple medications for this, but as per patient's caregiver has been having loose bowel movements only. CT abdomen/pelvis with preliminary showed large stool ball distending the rectum with circumferential rectal wall thickening and perirectal fat stranding which is worrisome for stercoral colitis Patient's bowel movement most likely overflow diarrhea ED physician attempted rectal disimpaction, but was unsuccessful at this time. Plan: -Glycerin suppository -GI consulted, appreciate recommendations -seen post upper GI endoscopy, NG tube was placed for GoLytely prep, as patient was unable to tolerate prep, also aspirating on liquids, colonoscopy pending to evaluate for colon wall thickening. Soft restraints applied as patient trying to pull the G-tube. Disposition: Patient admitted to med surg for constipation and Aspiration PNA . Diet: On GoLytely prep GI prophylaxis: protonix DVT prophylaxis: SCDs Code: Full code as no documentation of patient's code status, patient is conserved Patient plan of care was discussed with the attending physician, Dr. Duong. Gerardo PGY-3
[2024-09-05 20:00] VITALS: BP 128/75; PULSE 60; RESP 18; TEMP 36.6; O2SAT 91
--- NOTE | 2024-09-05 20:48 | ESPR_ITS ---
Documentation for date of: 09/05/24 Subjective Subjective Interval history: Patient evaluated Scheduled for colonoscopy but he is not clear Getting GoLytely via the NGT Colonoscopy rescheduled for tomorrow Exam Vital Signs Temp Pulse Resp BP Pulse Ox O2 Del Method O2 Flow Rate 97.9 F 60 18 128/75 91 L Room Air 2 09/05/24 20:00 09/05/24 20:00 09/05/24 20:00 09/05/24 20:00 09/05/24 20:00 09/05/24 20:00 09/05/24 04:00 Objective Labs 09/05/24 05:18 09/05/24 05:18 Labs: Laboratory Results - last 24 hr 09/05/24 05:18 WBC 6.8 RBC 4.00 L Hgb 12.5 L Hct 35.4 L MCV 89 MCH 31.3 MCHC 35.3 RDW Std Deviation 43.8 Plt Count 220 Neut % (Auto) 62 Lymph % (Auto) 26 [place] % (Auto) 10 Eos % (Auto) 2 Baso % (Auto) 1 Neut # (Auto) 4.2 Lymph # (Auto) 1.8 [place] # (Auto) 0.7 Eos # (Auto) 0.1 Baso # (Auto) 0.1 Immature Gran # (Auto) 0.01 H Absolute Nucleated RBC 0.00 Immature Gran % 0 Nucleated RBC % 0 Sodium 141 Potassium 3.6 D Chloride 110 H Carbon Dioxide 24.6 Anion Gap 6 L BUN 7 L Creatinine 0.7 Estim Creat Clear Calc Not Performed. eGFR > 60 BUN/Creatinine Ratio 10 L Glucose 76 Calculated Osmolality 278 Calcium 8.9 Phosphorus 2.8 Impressions Impression: Abnormal CT scan of the abdomen and pelvis Stool impaction Colonoscopy a.m. after additional GoLytely ABG Interpretation ABG results: 09/03/24 21:07 VBG pH 7.51 VBG pCO2 37 VBG pO2 55 VBG Base Excess 6 H Assessment & Plan A&P Narrative # Stool impaction leading to rectal thickening most likely Recommend manual disimpaction followed by GoLytely either via NGT or orally after speech pathology evaluation will follow the patient # Choking with food May need upper endoscopy prior to discharge for further evaluation with possible esophageal dilatation for esophageal stricture exist It is difficult to evaluate this patient from lack of history. Other medical problems include Developmentally delayed Cerebral palsy Chronic constipation Thank you very much for the opportunity to participate in the care of this patient Time Spent With Patient Time: Total time spent is greater than 50% in coordination of care (as documented) at patient's floor/unit and/or counseling patient:
[2024-09-06] VITALS (8 sets, daily range): BP systolic 109–148; BP diastolic 53–99; PULSE 54–63; RESP 15–95; TEMP 36.1–36.3; O2SAT 91–96
[2024-09-06] MEDS: AMPICILLIN/SULBAC INJ 3 GM in SODIUM CHLORIDE 0.9% (POP) 100 ML IV ×5 (00:41→23:26)
--- NOTE | 2024-09-06 02:49 | PC.NURSE ---
RN was notified by property assessment monitor that the patients heart rate had dropped to 46. Upon assessment, patient was found sleeping comfortably. Current heart rate is 70. Dr. Rodriguez notified. Will continue to monitor.
[2024-09-06 05:28] LABS: Basophils # (Auto) 0.0 Thou/mm3 (0.0-0.2); Basophils % (Auto) 1 % (0-2.5); Eosinophils # (Auto) 0.1 Thou/mm3 (0.0-0.5); Eosinophils % (Auto) 1 % (0-10); Hematocrit 35.5 % (41.0-53.0); Hemoglobin 12.4 g/dL (13.5-16.0); Immature Granulocytes Auto 0.01 Thou/mm3 (0.00-0.00); Lymphocytes # (Auto) 1.7 Thou/mm3 (1.0-4.8); Lymphocytes % (Auto) 22 % (10-50); Mean Corpuscular HGB Conc 34.9 g/dl (31.0-37.0); Mean Corpuscular Hemoglobin 31.0 pg (25.0-35.0); Mean Corpuscular Volume 89 fL (80-100); Monocytes # (Auto) 0.5 Thou/mm3 (0.0-0.8); Monocytes % (Auto) 7 % (0-12); Neutrophils # (Auto) 5.3 Thou/mm3 (1.8-7.7); Neutrophils % (Auto) 70 % (37-80); Nucleated Red Blood Cell # 0.00 Thou/mm3 (0.00-0.00); Nucleated Red Blood Cell % 0 /100 WBC (0); Platelet Count 227 Thou/mm3 (140-440); RDW Standard Deviation 43.4 fL (35.1-43.9); Red Blood Count 4.00 Miln/mm3 (4.50-5.90); White Blood Count 7.5 Thou/mm3 (3.8-10.6)
[2024-09-06 05:57] LABS: Anion Gap 11 (7-16); BUN/Creatinine Ratio 7 Ratio (12-20); Blood Urea Nitrogen < 5 mg/dL (9-23); Calcium 8.8 mg/dL (8.3-10.6); Carbon Dioxide 28.1 mMol/L (20.0-31.0); Chloride 106 mMol/L (98-107); Creatinine (Component) 0.7 mg/dL (0.6-1.3); Estimated Creatinine Clearance 101.3 mL/min (>60); Glucose 88 mg/dL (74-106); Magnesium 1.7 mg/dL (1.6-2.6); Osmolality,Calculated 284 (275-295); Phosphorous 2.6 mg/dL (2.4-5.1); Potassium 3.5 mMol/L (3.4-5.1); Sodium 145 mMol/L (136-145); eGFR > 60 See Note
[2024-09-06] MEDS: POTASSIUM CHLORIDE 10% 20 MEQ/15 ML UDC 40 MEQ PO (07:44)
[2024-09-06] MEDS: Magnesium Sulfate 2 GM Ivpb 2 GM/50 ML BAG IV (07:44)
[2024-09-06] MEDS: NA SU/NAHCO3/KC/PEG (Golytely) 4,000 ML BTL 4000 ML PO (07:44)
--- NOTE | 2024-09-06 14:20 | ESPR_ITS ---
Documentation for date of: 09/06/24 Subjective Subjective Interval history: Patient was scheduled for a colonoscopy He is not clear Additional GoLytely Exam Vital Signs Temp Pulse Resp BP Pulse Ox O2 Del Method O2 Flow Rate 97.4 F 61 16 127/83 95 Room Air 2 09/06/24 12:00 09/06/24 12:00 09/06/24 12:00 09/06/24 12:00 09/06/24 12:00 09/06/24 12:00 09/05/24 04:00 Objective Labs 09/06/24 04:46 09/06/24 04:46 Labs: Laboratory Results - last 24 hr 09/06/24 04:46 WBC 7.5 RBC 4.00 L Hgb 12.4 L Hct 35.5 L MCV 89 MCH 31.0 MCHC 34.9 RDW Std Deviation 43.4 Plt Count 227 Neut % (Auto) 70 Lymph % (Auto) 22 [place] % (Auto) 7 Eos % (Auto) 1 Baso % (Auto) 1 Neut # (Auto) 5.3 Lymph # (Auto) 1.7 [place] # (Auto) 0.5 Eos # (Auto) 0.1 Baso # (Auto) 0.0 Immature Gran # (Auto) 0.01 H Absolute Nucleated RBC 0.00 Immature Gran % 0 Nucleated RBC % 0 Sodium 145 Potassium 3.5 Chloride 106 Carbon Dioxide 28.1 Anion Gap 11 BUN < 5 L Creatinine 0.7 Estim Creat Clear Calc 101.3 eGFR > 60 BUN/Creatinine Ratio 7 L Glucose 88 Calculated Osmolality 284 Calcium 8.8 Phosphorus 2.6 Magnesium 1.7 Impressions Impression: Stool impaction Abnormal CT scan of the abdomen pelvis Continue GoLytely prep Colonoscopy once patient is clear ABG Interpretation ABG results: 09/03/24 21:07 VBG pH 7.51 VBG pCO2 37 VBG pO2 55 VBG Base Excess 6 H Assessment & Plan A&P Narrative # Stool impaction leading to rectal thickening most likely Recommend manual disimpaction followed by GoLytely either via NGT or orally after speech pathology evaluation will follow the patient # Choking with food May need upper endoscopy prior to discharge for further evaluation with possible esophageal dilatation for esophageal stricture exist It is difficult to evaluate this patient from lack of history. Other medical problems include Developmentally delayed Cerebral palsy Chronic constipation Thank you very much for the opportunity to participate in the care of this patient Time Spent With Patient Time: Total time spent is greater than 50% in coordination of care (as documented) at patient's floor/unit and/or counseling patient:
--- NOTE | 2024-09-06 15:00 | ESPR_ITS ---
<Statement entered by Pat Duong MD - 09/12/24 14:55> I reviewed above note and agree with findings and plans. I have also personally examined the patient with medicine team and went over assessment and plan with medical team including science intern and resident physician. Documentation for date of: 09/06/24 Subjective Subjective Interval history: Patient continues to be on 24 hour medical restrains as as patient unable to comply with NG tube in place for [place]. Patient still not cleared. Exam Vital Signs Temp Pulse Resp BP Pulse Ox O2 Del Method O2 Flow Rate 97.4 F 60 18 123/53 L 96 Room Air 2 09/06/24 16:00 09/06/24 16:00 09/06/24 16:00 09/06/24 16:00 09/06/24 16:09/06/24 16:09/05/24 04:00 Narrative Exam General: Awake, spontaneous movements. Cerebral palsy, nonverbal. NG tube placed. Soft restraints applied as patient trying to pull the G-tube. HEENT: Normocephalic, atraumatic, mucous membranes moist. Heart: Regular rate and rhythm, normal S1 and S2, no murmurs. Lungs: Clear to auscultation with no wheezing or crackles. Abdomen: Firm and tense but not concerning for peritoneal signs, nondistended, nontender, positive bowel sounds. No guarding or rebound tenderness. Neurologic: Alert and oriented x3, no gross neurological deficit, and patient able to move all 4 extremities. Extremities: Contracted feet. Moves extremities spontaneously. Skin: No rash or ecchymoses. Objective Labs 09/06/24 04:46 09/06/24 04:46 Labs: Laboratory Results - last 24 hr 09/06/24 04:46 WBC 7.5 RBC 4.00 L Hgb 12.4 L Hct 35.5 L MCV 89 MCH 31.0 MCHC 34.9 RDW Std Deviation 43.4 Plt Count 227 Neut % (Auto) 70 Lymph % (Auto) 22 [place] % (Auto) 7 Eos % (Auto) 1 Baso % (Auto) 1 Neut # (Auto) 5.3 Lymph # (Auto) 1.7 [place] # (Auto) 0.5 Eos # (Auto) 0.1 Baso # (Auto) 0.0 Immature Gran # (Auto) 0.01 H Absolute Nucleated RBC 0.00 Immature Gran % 0 Nucleated RBC % 0 Sodium 145 Potassium 3.5 Chloride 106 Carbon Dioxide 28.1 Anion Gap 11 BUN < 5 L Creatinine 0.7 Estim Creat Clear Calc 101.3 eGFR > 60 BUN/Creatinine Ratio 7 L Glucose 88 Calculated Osmolality 284 Calcium 8.8 Phosphorus 2.6 Magnesium 1.7 ABG Interpretation ABG results: 09/03/24 21:07 VBG pH 7.51 VBG pCO2 37 VBG pO2 55 VBG Base Excess 6 H Quality Measures Quality Measures none Assessment & Plan Assessment Current Active Medications: Generic Name Dose Route Start Last Admin Trade Name Freq PRN Reason Stop Dose Admin Acetaminophen 650 mg 09/02/24 03:53 Acetaminophen Supp 650 Mg Supp [place] 10/02/24 03:52 Q6HR PRN Fever > 100.4 Ampicillin Sodium/Sulbactam 100 mls @ 200 mls/hr 09/02/24 06:00 09/06/24 17:11 Sodium 3 gm/ Sodium Chloride IV 09/09/24 05:59 200 mls/hr Q6HR CHARLES Administration Ondansetron HCl 4 mg 09/02/24 03:53 Ondansetron Inj 2 Mg/Ml Inj 2 Ml IVP 10/02/24 03:52 Q6H PRN NAUSEA OR VOMITING Protocol Pantoprazole Sodium 40 mg 09/02/24 09:00 09/06/24 08:00 Pantoprazole Inj 40 Mg Vial IVP 10/02/24 08:59 40 mg QDAY CHARLES Administration Plan 59-year-old male with past medical history of developmental delay nonverbal at baseline, cerebral palsy, chronic constipation, previous GI bleed, and GERD was admitted to the hospital on 09/02/2024 for severe constipation and aspiration pneumonia. #Possible Aspiration pneumonia #Acute hypoxic respiratory failure, resolved #Choking episode Patient had episode of choking today with dinnertime and patient's caregiver stated that was that he was eating too fast. Patient's chest x-ray that showed right base pneumonia and patient's chest CT also showed changes concerning for pneumonia. Patient has no WBC elevation at this time Patient was mildly hypoxic when he came into the ED and was placed on oxy mask Consider pneumonitis versus aspiration pneumonia Plan: -Continue Unasyn 3 g q6h -Aspiration precautions -Speech therapy referral #Severe constipation #Possible stercoral colitis Patient has a history of constipation and takes multiple medications for this, but as per patient's caregiver has been having loose bowel movements only. CT abdomen/pelvis with preliminary showed large stool ball distending the rectum with circumferential rectal wall thickening and perirectal fat stranding which is worrisome for stercoral colitis Patient's bowel movement most likely overflow diarrhea ED physician attempted rectal disimpaction, but was unsuccessful at this time. Plan: -Glycerin suppository -GI consulted, appreciate recommendations -seen post upper GI endoscopy, NG tube was placed for GoLytely prep, as patient was unable to tolerate prep, also aspirating on liquids, colonoscopy pending to evaluate for colon wall thickening. Soft restraints applied as patient trying to pull the G-tube. Disposition: Patient admitted to med surg for constipation and Aspiration PNA . Diet: On GoLytely prep GI prophylaxis: protonix DVT prophylaxis: SCDs Code: Full code as no documentation of patient's code status, patient is conserved - The patient's plan was discussed with attending Dr. Ad Barnard MD PGY2 Internal Medicine
--- NOTE | 2024-09-06 18:29 | PC.NURSE ---
Had to call Dr. Duong to renew restrain orders. Will continue to monitor patient.
--- NOTE | 2024-09-06 22:39 | PC.LAC ---
hvac maintenance technician notified RN that the patients heart rate dropped to 44bpm. Patient i asymptomatic and resting comfortably. Dr Darden notified. No new orders given. Will continue to monitor.
[2024-09-07] VITALS (12 sets, daily range): BP systolic 114–133; BP diastolic 62–82; PULSE 50–91; RESP 16–97; TEMP 36.1–36.2; O2SAT 93–96
--- NOTE | 2024-09-07 00:24 | PC.NURSE ---
Patient removed NG tube despite being on bilateral soft restrains and continuous monitoring. NG tube was initially placed for bowel prep due to inability to tolerate Golytely PO. Patient has since had clear bowel movements and is now clean. Restraints were removed. notified and no reinsertion of NG tube is planned at this time. Will continue to monitor.
[2024-09-07] MEDS: AMPICILLIN/SULBAC INJ 3 GM in SODIUM CHLORIDE 0.9% (POP) 100 ML IV ×3 (05:17→17:01)
[2024-09-07 05:33] LABS: Basophils # (Auto) 0.0 Thou/mm3 (0.0-0.2); Basophils % (Auto) 1 % (0-2.5); Eosinophils # (Auto) 0.1 Thou/mm3 (0.0-0.5); Eosinophils % (Auto) 2 % (0-10); Hematocrit 34.6 % (41.0-53.0); Hemoglobin 11.8 g/dL (13.5-16.0); Immature Granulocytes Auto 0.01 Thou/mm3 (0.00-0.00); Lymphocytes # (Auto) 1.5 Thou/mm3 (1.0-4.8); Lymphocytes % (Auto) 26 % (10-50); Mean Corpuscular HGB Conc 34.1 g/dl (31.0-37.0); Mean Corpuscular Hemoglobin 31.2 pg (25.0-35.0); Mean Corpuscular Volume 92 fL (80-100); Monocytes # (Auto) 0.5 Thou/mm3 (0.0-0.8); Monocytes % (Auto) 9 % (0-12); Neutrophils # (Auto) 3.7 Thou/mm3 (1.8-7.7); Neutrophils % (Auto) 62 % (37-80); Nucleated Red Blood Cell # 0.00 Thou/mm3 (0.00-0.00); Nucleated Red Blood Cell % 0 /100 WBC (0); Platelet Count 232 Thou/mm3 (140-440); RDW Standard Deviation 45.1 fL (35.1-43.9); Red Blood Count 3.78 Miln/mm3 (4.50-5.90); White Blood Count 5.9 Thou/mm3 (3.8-10.6)
[2024-09-07 06:05] LABS: Alanine Aminotransferase 21 U/L (10-49); Albumin, Serum 3.4 gm/dL (3.4-4.8); Albumin/Globulin Ratio 1.4 (1.2-2.2); Alkaline Phosphatase 106 U/L (46-116); Anion Gap 13 (7-16); Aspartate Amino Transferase 32 U/L (0-34); BUN/Creatinine Ratio 7 Ratio (12-20); Bilirubin,Total 0.5 mg/dL (0.3-1.2); Blood Urea Nitrogen < 5 mg/dL (9-23); Calcium 8.6 mg/dL (8.3-10.6); Calcium (Corrected) 9.1 mg/dL (8.5-10.1); Carbon Dioxide 26.0 mMol/L (20.0-31.0); Chloride 108 mMol/L (98-107); Creatinine (Component) 0.7 mg/dL (0.6-1.3); Estimated Creatinine Clearance 101.3 mL/min (>60); Globulin 2.4 gm/dL (2.3-3.5); Glucose 83 mg/dL (74-106); Magnesium 1.7 mg/dL (1.6-2.6); Osmolality,Calculated 288 (275-295); Phosphorous 2.9 mg/dL (2.4-5.1); Potassium 3.5 mMol/L (3.4-5.1); Sodium 147 mMol/L (136-145); Total Protein 5.8 gm/dL (5.7-8.2); eGFR > 60 See Note
--- NOTE | 2024-09-07 12:03 | XR_ITS ---
Examination: AP chest single view Technique one AP portable semiupright chest single view Date and time: September 11, 2024, 12 0 9:00 PM Comparison September 04, 2004 Indications: Post orogastric tube placement. Findings: Orogastric tube is coiled in the stomach No free air No pneumonia Impression: Recommend retracting the orogastric tube 8 cm
--- NOTE | 2024-09-07 12:39 | ESPR_ITS ---
<Statement entered by Pat Duong MD - 09/14/24 11:43> I reviewed above note and agree with findings and plans. I have also personally examined the patient with medicine team and went over assessment and plan with medical team including corporate legal intern and resident physician. Documentation for date of: 09/07/24 Subjective Subjective Interval history: Patient was seen and examined at bedside. A.m. vitals and labs reviewed. Yesterday, NG tube has been placed for GoLytely prep but the patient pulled out the tube and was unable to get the colonoscopy. Patient is not cleared for colonoscopy. Will reattempt NG tube for the GoLytely prep today again. Given patient's nonverbal status was unable to ask questions. Exam Vital Signs Temp Pulse Resp BP Pulse Ox O2 Del Method O2 Flow Rate 97.2 F 67 18 125/62 95 Room Air 2 09/07/24 08:00 09/07/24 08:54 09/07/24 08:54 09/07/24 08:00 09/07/24 08:00 09/07/24 08:00 09/05/24 04:00 Narrative Exam General: Awake, spontaneous movements. Cerebral palsy, nonverbal. NG tube placed. Soft restraints applied as patient trying to pull the G-tube. HEENT: Normocephalic, atraumatic, mucous membranes moist. Heart: Regular rate and rhythm, normal S1 and S2, no murmurs. Lungs: Clear to auscultation with no wheezing or crackles. Abdomen: Firm and tense but not concerning for peritoneal signs, nondistended, nontender, positive bowel sounds. No guarding or rebound tenderness. Neurologic: Alert and oriented x3, no gross neurological deficit, and patient able to move all 4 extremities. Extremities: Contracted feet. Moves extremities spontaneously. Skin: No rash or ecchymoses. Objective Labs 09/08/24 05:12 09/08/24 05:12 Labs: Laboratory Results - last 24 hr 09/07/24 04:52 WBC 5.9 RBC 3.78 L Hgb 11.8 L Hct 34.6 L MCV 92 MCH 31.2 MCHC 34.1 RDW Std Deviation 45.1 H Plt Count 232 Neut % (Auto) 62 Lymph % (Auto) 26 [place] % (Auto) 9 Eos % (Auto) 2 Baso % (Auto) 1 Neut # (Auto) 3.7 Lymph # (Auto) 1.5 [place] # (Auto) 0.5 Eos # (Auto) 0.1 Baso # (Auto) 0.0 Immature Gran # (Auto) 0.01 H Absolute Nucleated RBC 0.00 Immature Gran % 0 Nucleated RBC % 0 Sodium 147 H Potassium 3.5 Chloride 108 H Carbon Dioxide 26.0 Anion Gap 13 BUN < 5 L Creatinine 0.7 Estim Creat Clear Calc 101.3 eGFR > 60 BUN/Creatinine Ratio 7 L Glucose 83 Calculated Osmolality 288 Calcium 8.6 Corrected Calcium 9.1 Phosphorus 2.9 Magnesium 1.7 Total Bilirubin 0.5 AST 32 ALT 21 Alkaline Phosphatase 106 Total Protein 5.8 Albumin 3.4 Globulin 2.4 Albumin/Globulin Ratio 1.4 ABG Interpretation ABG results: 09/03/24 21:07 VBG pH 7.51 VBG pCO2 37 VBG pO2 55 VBG Base Excess 6 H Quality Measures Quality Measures none Assessment & Plan Assessment Current Active Medications: Generic Name Dose Route Start Last Admin Trade Name Freq PRN Reason Stop Dose Admin Acetaminophen 650 mg 09/02/24 03:53 Acetaminophen Supp 650 Mg Supp [place] 10/02/24 03:52 Q6HR PRN Fever > 100.4 Ampicillin Sodium/Sulbactam 100 mls @ 200 mls/hr 09/02/24 06:00 09/07/24 05:17 Sodium 3 gm/ Sodium Chloride IV 09/09/24 05:59 200 mls/hr Q6HR CHARLES Administration Levothyroxine Sodium 75 mcg 09/07/24 11:00 Levothyroxine Sodium 25 Mcg Tablet PO 10/07/24 10:59 ACBR CHARLES Melatonin 9 mg 09/07/24 21:00 Melatonin 3 Mg Tablet PO 10/07/24 20:59 HS CHARLES Ondansetron HCl 4 mg 09/02/24 03:53 Ondansetron Inj 2 Mg/Ml Inj 2 Ml IVP 10/02/24 03:52 Q6H PRN NAUSEA OR VOMITING Protocol Pantoprazole Sodium 40 mg 09/02/24 09:00 09/07/24 08:02 Pantoprazole Inj 40 Mg Vial IVP 10/02/24 08:59 40 mg QDAY CHARLES Administration Quetiapine Fumarate 25 mg 09/08/24 09:00 Quetiapine Fumarate 25 Mg Tablet PO 08/05/25 08:59 QDAY CHARLES Trazodone HCl 100 mg 09/07/24 21:00 Trazodone Hcl 50 Mg Tablet PO 10/07/24 20:59 HS [facility] Plan 59-year-old male with past medical history of developmental delay nonverbal at baseline, cerebral palsy, chronic constipation, previous GI bleed, and GERD was admitted to the hospital on 09/02/2024 for severe constipation and aspiration pneumonia. #Possible Aspiration pneumonia #Acute hypoxic respiratory failure, resolved #Choking episode Patient had episode of choking today with dinnertime and patient's caregiver stated that was that he was eating too fast. Patient's chest x-ray that showed right base pneumonia and patient's chest CT also showed changes concerning for pneumonia. Patient has no WBC elevation at this time Patient was mildly hypoxic when he came into the ED and was placed on oxy mask Consider pneumonitis versus aspiration pneumonia Plan: -Continue Unasyn 3 g q6h -Aspiration precautions -Speech therapy referral #Severe constipation #Possible stercoral colitis Patient has a history of constipation and takes multiple medications for this, but as per patient's caregiver has been having loose bowel movements only. CT abdomen/pelvis with preliminary showed large stool ball distending the rectum with circumferential rectal wall thickening and perirectal fat stranding which is worrisome for stercoral colitis Patient's bowel movement most likely overflow diarrhea ED physician attempted rectal disimpaction, but was unsuccessful at this time. Plan: -Glycerin suppository -GI consulted, appreciate recommendations -seen post upper GI endoscopy, NG tube was placed for GoLytely prep, as patient was unable to tolerate prep, also aspirating on liquids, colonoscopy pending to evaluate for colon wall thickening. Soft restraints applied as patient trying to pull the G-tube. Disposition: Patient admitted to med surg for constipation and Aspiration PNA . Diet: On GoLytely prep GI prophylaxis: protonix DVT prophylaxis: SCDs Code: Full code as no documentation of patient's code status, patient is conserved Assessment and plan discussed with my attending physician Dr. Ad Sands (PGY-1)- Internal medicine resident
[2024-09-07] MEDS: LEVOTHYROXINE SODIUM 25 MCG TABLET 75 MCG PO (13:20)
--- NOTE | 2024-09-07 14:54 | XR_ITS ---
Examination: AP chest single view Technique one AP portable supine chest single view Date and time: September 07, 2024, 1512 hrs. Comparison September 07, 2024, 1209 hrs. Indications: Reposition orogastric tube Findings: Less coiling of the orogastric tube on this study Normal heart size The lungs are clear Impression: Adequate position orogastric tube
[2024-09-07] MEDS: NA SU/NAHCO3/KC/PEG (Golytely) 4,000 ML BTL 4000 ML PO (17:01)
--- NOTE | 2024-09-07 17:33 | PD.IMPROG ---
Documentation for date of: 09/07/24 Subjective Subjective Interval history: Patient not clear colonoscopy postponed Additional GoLytely Exam Vital Signs Temp Pulse Resp BP Pulse Ox O2 Del Method O2 Flow Rate 97.1 F 50 L 16 114/67 96 Room Air 2 09/07/24 16:00 09/07/24 16:33 09/07/24 16:00 09/07/24 16:00 09/07/24 16:00 09/07/24 16:00 09/05/24 04:00 Objective Labs 09/07/24 04:52 09/07/24 04:52 Labs: Laboratory Results - last 24 hr 09/07/24 04:52 WBC 5.9 RBC 3.78 L Hgb 11.8 L Hct 34.6 L MCV 92 MCH 31.2 MCHC 34.1 RDW Std Deviation 45.1 H Plt Count 232 Neut % (Auto) 62 Lymph % (Auto) 26 [place] % (Auto) 9 Eos % (Auto) 2 Baso % (Auto) 1 Neut # (Auto) 3.7 Lymph # (Auto) 1.5 [place] # (Auto) 0.5 Eos # (Auto) 0.1 Baso # (Auto) 0.0 Immature Gran # (Auto) 0.01 H Absolute Nucleated RBC 0.00 Immature Gran % 0 Nucleated RBC % 0 Sodium 147 H Potassium 3.5 Chloride 108 H Carbon Dioxide 26.0 Anion Gap 13 BUN < 5 L Creatinine 0.7 Estim Creat Clear Calc 101.3 eGFR > 60 BUN/Creatinine Ratio 7 L Glucose 83 Calculated Osmolality 288 Calcium 8.6 Corrected Calcium 9.1 Phosphorus 2.9 Magnesium 1.7 Total Bilirubin 0.5 AST 32 ALT 21 Alkaline Phosphatase 106 Total Protein 5.8 Albumin 3.4 Globulin 2.4 Albumin/Globulin Ratio 1.4 Impressions Impression: Stool impaction Abnormal CT scan of the abdomen pelvis Continue GoLytely prep till patient is cleared before we do a colonoscopy with biopsies ABG Interpretation ABG results: 09/03/24 21:07 VBG pH 7.51 VBG pCO2 37 VBG pO2 55 VBG Base Excess 6 H Assessment & Plan A&P Narrative # Stool impaction leading to rectal thickening most likely Recommend manual disimpaction followed by GoLytely either via NGT or orally after speech pathology evaluation will follow the patient # Choking with food May need upper endoscopy prior to discharge for further evaluation with possible esophageal dilatation for esophageal stricture exist It is difficult to evaluate this patient from lack of history. Other medical problems include Developmentally delayed Cerebral palsy Chronic constipation Thank you very much for the opportunity to participate in the care of this patient Time Spent With Patient Time: Total time spent is greater than 50% in coordination of care (as documented) at patient's floor/unit and/or counseling patient:
[2024-09-07] MEDS: MELATONIN 3 MG TABLET 9 MG PO (21:21)
[2024-09-08] VITALS (21 sets, daily range): BP systolic 93–149; BP diastolic 59–84; PULSE 48–76; RESP 12–91; TEMP 36.1–36.4; O2SAT 91–100
[2024-09-08] MEDS: AMPICILLIN/SULBAC INJ 3 GM in SODIUM CHLORIDE 0.9% (POP) 100 ML IV ×5 (00:46→23:48)
[2024-09-08] MEDS: LEVOTHYROXINE SODIUM 25 MCG TABLET 75 MCG PO (05:46)
[2024-09-08 06:13] LABS: Basophils # (Auto) 0.1 Thou/mm3 (0.0-0.2); Basophils % (Auto) 1 % (0-2.5); Eosinophils # (Auto) 0.2 Thou/mm3 (0.0-0.5); Eosinophils % (Auto) 4 % (0-10); Hematocrit 34.0 % (41.0-53.0); Hemoglobin 11.9 g/dL (13.5-16.0); Immature Granulocytes Auto 0.01 Thou/mm3 (0.00-0.00); Lymphocytes # (Auto) 1.6 Thou/mm3 (1.0-4.8); Lymphocytes % (Auto) 27 % (10-50); Mean Corpuscular HGB Conc 35.0 g/dl (31.0-37.0); Mean Corpuscular Hemoglobin 31.2 pg (25.0-35.0); Mean Corpuscular Volume 89 fL (80-100); Monocytes # (Auto) 0.6 Thou/mm3 (0.0-0.8); Monocytes % (Auto) 10 % (0-12); Neutrophils # (Auto) 3.4 Thou/mm3 (1.8-7.7); Neutrophils % (Auto) 58 % (37-80); Nucleated Red Blood Cell # 0.00 Thou/mm3 (0.00-0.00); Nucleated Red Blood Cell % 0 /100 WBC (0); Platelet Count 228 Thou/mm3 (140-440); RDW Standard Deviation 44.2 fL (35.1-43.9); Red Blood Count 3.82 Miln/mm3 (4.50-5.90); White Blood Count 5.8 Thou/mm3 (3.8-10.6)
[2024-09-08 06:47] LABS: Alanine Aminotransferase 21 U/L (10-49); Albumin, Serum 3.4 gm/dL (3.4-4.8); Albumin/Globulin Ratio 1.4 (1.2-2.2); Alkaline Phosphatase 110 U/L (46-116); Anion Gap 12 (7-16); Aspartate Amino Transferase 27 U/L (0-34); BUN/Creatinine Ratio 7 Ratio (12-20); Bilirubin,Total 0.5 mg/dL (0.3-1.2); Blood Urea Nitrogen < 5 mg/dL (9-23); Calcium 8.8 mg/dL (8.3-10.6); Calcium (Corrected) 9.3 mg/dL (8.5-10.1); Carbon Dioxide 28.6 mMol/L (20.0-31.0); Chloride 106 mMol/L (98-107); Creatinine (Component) 0.7 mg/dL (0.6-1.3); Estimated Creatinine Clearance 101.3 mL/min (>60); Globulin 2.4 gm/dL (2.3-3.5); Glucose 86 mg/dL (74-106); Magnesium 1.7 mg/dL (1.6-2.6); Osmolality,Calculated 288 (275-295); Phosphorous 3.6 mg/dL (2.4-5.1); Potassium 3.7 mMol/L (3.4-5.1); Sodium 147 mMol/L (136-145); Total Protein 5.8 gm/dL (5.7-8.2); eGFR > 60 See Note
--- NOTE | 2024-09-08 10:05 | PC.NURSE ---
RETAIL ANALYTICS MANAGER called for change in condition, ', see RETAIL ANALYTICS MANAGER form for further informating
--- NOTE | 2024-09-08 10:17 | PC.NURSE ---
Pt. to CT via bed with Eze Hinton, Anmol HINTON, david Vang, with the [employer] for nueralogy.
--- NOTE | 2024-09-08 10:24 | XR_ITS ---
Examination: CT brain head without contrast. 2-D sagittal coronal reconstructions Date and time of exam: September 08, 2024, 10:30 AM Indications: Stroke alert, onset focal neurologic deficit altered mental status beginning 9:00 AM this morning CTDI: vol (mGy):50.6 DLP: (mGycm):1040 Technique: Multiple CT axial sections of the brain have been obtained, 5 mm slice thickness. Contrast has not been administered. 2-D sagittal, coronal reconstructions have been obtained Low dose protocols were performed. One or more of the following dose reduction techniques were used; automated exposure control, adjustment of the mA and/or KV according to patient size, use of iterative reconstruction technique. Findings: Mild ventricular enlargement. Intra-axial or extra-axial hemorrhage density is not seen. No mass effect or midline shift Basal cisterns are not remarkable. Fourth ventricle is midline. Cranial vault intact. Impression: Negative for acute hemorrhage, mass effect or midline shift
--- NOTE | 2024-09-08 10:35 | XR_ITS ---
Examination: CTA carotids with intravenous contrast CTA brain, head with intravenous contrast. 2-D sagittal, coronal reconstructions. 3-D reconstructions. Exam date and time: 625, 10:44 AM Indications: Stroke alert, onset focal morphologic deficit beginning this morning CTDI: vol (mGy) 24.1. DLP: (mGycm) 459. Technique: Multiple CTA axial brain, head carotid images post intravenous contrast injection 75 cc, [id number]. 2-D sagittal, coronal reconstructions. 3-D reconstructions, 3-D post processing including vascular maximum intensity projection images. Low dose protocols were performed. One or more of the following dose reduction techniques were used; automated exposure control, adjustment of the mA and/or KV according to patient size, use of iterative reconstruction technique. Findings: No significant common carotid carotid bifurcation or internal carotid artery stenoses Mildly dominant left vertebral artery in the neck no critical stenoses Intracranial vertebral arteries basilar artery posterior cerebral arteries fill with no large vessel occlusions Middle cerebral anterior cerebral branches demonstrate no large vessel occlusions Impression: No significant neck arterial stenoses No cerebral large vessel arterial occlusions or thrombus
--- NOTE | 2024-09-08 10:38 | ESCONSULT_ITS ---
Tele Neuro Consultation Consultation Date 09/08/24 Most Recent Vital Signs Last Vital Signs Temp 97.2 F 09/08/24 04:00 Pulse 76 09/08/24 04:00 Resp 17 09/08/24 04:00 BP 128/68 09/08/24 04:00 Pulse Ox 92 L 09/08/24 04:00 O2 Del Method Room Air 09/08/24 04:00 O2 Flow Rate 2 09/05/24 04:00 Consultation Narrative [facility] Patient Name:???Edwin Soler Date of :???1965 Identification Number:??? Date of Service:???09/08/2024 10:16:34 Diagnosis:?G93.49 - Encephalopathy Multifactorial Impression: ?59 year old male with PMH of developmental delay, GERD, chronic constipation, GI bleed. On 09/02, he was admitted for aspiration pneumonia and choking episodes ?EGD on 09/04 showed esophagitis and they did conduct esophageal biopsy. ? ?He was found unresponsive 945AM with bradycardia 40s. HR then improved to 50s but still continues to be unresponsive. He also dropped blood pressure briefly. He continues to be less responsive although he does withdraw to painful stimulus and showed a symmetric facial grimace continued to be nonverbal, was able to move left arm and left leg and visually track. ? ?Differentials include severe toxic metabolic encephalopathy due to bradycardia and/or any underlying infection and toxic metabolic disturbance. On my quick review of the images CT head did not show any acute hemorrhage, pending official read. I would recommend CT angio head and neck to rule out a basilar artery thrombus Our recommendations are outlined below. Recommendations: ? Stroke/Telemetry Floor ? Neuro Checks (Q2) ? Bedside Swallow Eval ? DVT Prophylaxis ? IV Fluids, Normal Saline ? Head of Bed 30 Degrees ? Euglycemia and Avoid Hyperthermia (PRN Acetaminophen) ? Antihypertensives PRN if Blood pressure is greater than 220/120 or there is a concern for End organ damage/contraindications for permissive HTN. If blood pressure is greater than 220/120 give labetalol PO or IV or Vasotec IV with a goal of 15% reduction in BP during the first 24 hours. Sign Out: ? Discussed with Rapid Response Team Advanced Imaging: Advanced imaging has been ordered. Results pending. Metrics: Last Known Well: 09/08/2024 09:20:00 Dispatch Time: 09/08/2024 10:16:34 Initial Response Time: 09/08/2024 10:18:25Symptoms: unresponsive. Initial patient interaction: 09/08/2024 10:20:16 NIHSS Assessment Completed: 09/08/2024 10:31:21Patient is not a candidate for Thrombolytic. Thrombolytic Medical Decision: 09/08/2024 10:31:22Patient was not deemed candidate for Thrombolytic because of following reasons: other diagnosis suspected bradycardia. CT Head: I personally reviewed all the CT images that were available to me and it showed: No hemorrhage Primary Provider Notified of Diagnostic Impression and Management Plan on: 09/08/2024 10:37:12 Spoke With: Hospitalist Able to Reach 09/08/2024 10:37:12 History of Present Illness:Patient is a 59 year old Male. Inpatient stroke alert was called for symptoms of unresponsive. 59 year old male with PMH of developmental delay, GERD, chronic constipation, GI bleed. On 09/02, he was admitted for aspiration pneumonia and choking episodes EGD on 09/04 showed esophagitis and they did conduct esophageal biopsy. He was found unresponsive 945AM with bradycardia 40s. HR then improved to 50s but still continues to be unresponsive. Past Medical History: ?Dementia/MCI ?There is no history of Stroke unable to obtain due to:?? Patient Is Obtunded/ Comatose Medications: No Anticoagulant use? No Antiplatelet use Reviewed EMR for current medications Allergies:? Reviewed Allergies Unable To Obtain Due To:?Patient Is Obtunded/ Comatose Social History: Unable To Obtain Due To Patient Status :?Patient Is Obtunded/ Comatose Family History: Family History Cannot Be Obtained Because:Patient Is Obtunded/ Comatose ROS :?ROS Cannot Be Obtained Because:? Patient Is Obtunded/ Comatose Past Surgical History: Past Surgical History Cannot Be Obtained Because: Patient Is Obtunded/ Comatose There Is No Surgical History Contributory To Today?s Visit Examination: BP(125/87),?Pulse(75), 1A: Level of Consciousness - Arouses to minor stimulation?+ 1 1B: Ask Month and Age - Could Not Answer Either Question Correctly?+ 2 1C: Blink Eyes & Squeeze Hands - Performs 1 Task?+ 1 2: Test Horizontal Extraocular Movements - Normal?+ 0 3: Test Visual [place] - No Visual Loss?+ 0 4: Test Facial Palsy (Use Grimace if Obtunded) - Normal symmetry?+ 0 5A: Test Left Arm Motor Drift - No Effort Against [place]?+ 3 5B: Test Right Arm Motor Drift - Some Effort Against [place]?+ 2 6A: Test Left Leg Motor Drift - Some Effort Against [place]?+ 2 6B: Test Right Leg Motor Drift - No Effort Against [place]?+ 3 7: Test Limb Ataxia (FNF/Heel-[place]) - No Ataxia?+ 0 8: Test Sensation - Coma/Unresponsive?+ 2 9: Test Language/Aphasia - Coma/Unresponsive?+ 3 10: Test Dysarthria - Mute/Anarthric?+ 2 11: Test Extinction/Inattention - No abnormality?+ 0 NIHSS Score:?21 Pre-Morbid Modified [place] Scale:5 Points = Severe disability; bedridden, incontinent and requiring constant nursing care and attention Spoke with :?Hospitalist This consult was conducted in real time using interactive audio and video technology. Patient was informed of the technology being used for this visit and agreed to proceed. Patient located in hospital and provider located at home/office setting. Patient is being evaluated for possible acute neurologic impairment and high probability of imminent or life-threatening deterioration. I spent total of 40 minutes providing care to this patient, including time for face to face visit via telemedicine, review of medical records, imaging studies and discussion of findings with providers, the patient and/or family. Dr Jori Vitale [facility] For Inpatient follow-up with [facility] physician please call [facility] at . As we are not an outpatient service for any post hospital discharge needs please contact the hospital for assistance. If you have any questions for the [facility] physicians or need to reconsult for clinical or diagnostic changes please contact us via [facility] at .
[2024-09-08] MEDS: DEXTROSE 50%-WATER INJ 50 ML SYRINGE IVP (10:57)
[2024-09-08] MEDS: SODIUM CHLORIDE 0.9% 500 ML 500 ML 999 ML IV (11:38)
--- NOTE | 2024-09-08 14:19 | ESPR_ITS ---
<Statement entered by Pat Duong MD - 09/14/24 11:43> I reviewed above note and agree with findings and plans. I have also personally examined the patient with medicine team and went over assessment and plan with medical team including internet manager and resident physician. Documentation for date of: 09/08/24 Subjective Subjective Interval history: Patient was seen and examined at bedside. A.m. vitals and labs reviewed. Patient had a rapid event in which he went bradycardic and became unresponsive, fingerstick glucose level was 79. Patient had spontaneously recovered. CT brain and head without contrast and head/neck CTA was negative. Patient is still not cleared for colonoscopy. Will discussed with GI Dr. Squires tomorrow for discharge. Given patient's nonverbal status was unable to ask questions. Exam Vital Signs Temp Pulse Resp BP Pulse Ox O2 Del Method O2 Flow Rate 97.6 F 69 14 124/75 95 Room Air 2 09/08/24 12:00 09/08/24 12:41 09/08/24 12:00 09/08/24 12:00 09/08/24 12:00 09/08/24 12:00 09/05/24 04:00 Narrative Exam General: Awake, spontaneous movements. Cerebral palsy, nonverbal. NG tube placed. Soft restraints applied as patient trying to pull the G-tube. HEENT: Normocephalic, atraumatic, mucous membranes moist. Heart: Regular rate and rhythm, normal S1 and S2, no murmurs. Lungs: Clear to auscultation with no wheezing or crackles. Abdomen: Firm and tense but not concerning for peritoneal signs, nondistended, nontender, positive bowel sounds. No guarding or rebound tenderness. Neurologic: Alert and oriented x3, no gross neurological deficit, and patient able to move all 4 extremities. Extremities: Contracted feet. Moves extremities spontaneously. Skin: No rash or ecchymoses. Objective Labs 09/08/24 05:12 09/08/24 05:12 Labs: Laboratory Results - last 24 hr 09/08/24 05:12 WBC 5.8 RBC 3.82 L Hgb 11.9 L Hct 34.0 L MCV 89 MCH 31.2 MCHC 35.0 RDW Std Deviation 44.2 H Plt Count 228 Neut % (Auto) 58 Lymph % (Auto) 27 [place] % (Auto) 10 Eos % (Auto) 4 Baso % (Auto) 1 Neut # (Auto) 3.4 Lymph # (Auto) 1.6 [place] # (Auto) 0.6 Eos # (Auto) 0.2 Baso # (Auto) 0.1 Immature Gran # (Auto) 0.01 H Absolute Nucleated RBC 0.00 Immature Gran % 0 Nucleated RBC % 0 Sodium 147 H Potassium 3.7 Chloride 106 Carbon Dioxide 28.6 Anion Gap 12 BUN < 5 L Creatinine 0.7 Estim Creat Clear Calc 101.3 eGFR > 60 BUN/Creatinine Ratio 7 L Glucose 86 Calculated Osmolality 288 Calcium 8.8 Corrected Calcium 9.3 Phosphorus 3.6 Magnesium 1.7 Total Bilirubin 0.5 AST 27 ALT 21 Alkaline Phosphatase 110 Total Protein 5.8 Albumin 3.4 Globulin 2.4 Albumin/Globulin Ratio 1.4 ABG Interpretation ABG results: 09/03/24 21:07 VBG pH 7.51 VBG pCO2 37 VBG pO2 55 VBG Base Excess 6 H Quality Measures Quality Measures none Assessment & Plan Assessment Current Active Medications: Generic Name Dose Route Start Last Admin Trade Name Freq PRN Reason Stop Dose Admin Acetaminophen 650 mg 09/02/24 03:53 Acetaminophen Supp 650 Mg Supp OH 10/02/24 03:52 Q6HR PRN Fever > 100.4 Ampicillin Sodium/Sulbactam 100 mls @ 200 mls/hr 09/02/24 06:00 09/08/24 12:18 Sodium 3 gm/ Sodium Chloride IV 09/09/24 05:59 200 mls/hr Q6HR CHARLES Administration Levothyroxine Sodium 75 mcg 09/07/24 11:00 09/08/24 05:46 Levothyroxine Sodium 25 Mcg Tablet PO 10/07/24 10:59 75 mcg ACBR CHARLES Administration Melatonin 9 mg 09/07/24 21:00 09/07/24 21:21 Melatonin 3 Mg Tablet PO 10/07/24 20:59 9 mg HS CHARLES Administration Ondansetron HCl 4 mg 09/02/24 03:53 Ondansetron Inj 2 Mg/Ml Inj 2 Ml IVP 10/02/24 03:52 Q6H PRN NAUSEA OR VOMITING Protocol Pantoprazole Sodium 40 mg 09/08/24 21:00 Pantoprazole Inj 40 Mg Vial IVP 10/08/24 20:59 BID CHARLES Plan 59-year-old male with past medical history of developmental delay nonverbal at baseline, cerebral palsy, chronic constipation, previous GI bleed, and GERD was admitted to the hospital on 09/02/2024 for severe constipation and aspiration pneumonia.Patient was given Unasyn 3g q6h. Currently unable to proceed with colonoscopy due to patient's interruption with the NG tube. #Possible Aspiration pneumonia #Acute hypoxic respiratory failure, resolved #Choking episode Patient had episode of choking today with dinnertime and patient's caregiver stated that was that he was eating too fast. Patient's chest x-ray that showed right base pneumonia and patient's chest CT also showed changes concerning for pneumonia. Patient has no WBC elevation at this time Patient was mildly hypoxic when he came into the ED and was placed on oxy mask Consider pneumonitis versus aspiration pneumonia Plan: -Continue Unasyn 3 g q6h -Aspiration precautions -Speech therapy referral #Severe constipation #Possible stercoral colitis Patient has a history of constipation and takes multiple medications for this, but as per patient's caregiver has been having loose bowel movements only. CT abdomen/pelvis with preliminary showed large stool ball distending the rectum with circumferential rectal wall thickening and perirectal fat stranding which is worrisome for stercoral colitis Patient's bowel movement most likely overflow diarrhea ED physician attempted rectal disimpaction, but was unsuccessful at this time. Plan: -Glycerin suppository -GI consulted, appreciate recommendations -seen post upper GI endoscopy, NG tube was placed for GoLytely prep, as patient was unable to tolerate prep, also aspirating on liquids, colonoscopy pending to evaluate for colon wall thickening. Soft restraints applied as patient trying to pull the G-tube. #Acute encephalopathy - Patient was altered and confused on 09/08/2024. Stroke alert was called. CTA head/neck and CT without contrast head/neck was negative. -Likely the effect of Seroquel as the patient took the medication couple hours before the event. Seroquel has been discontinued - At the time patient fingerstick glucose was 79. - Patient has returned to baseline spontaneously. Disposition: Patient admitted to med surg for constipation and Aspiration PNA . Diet: On GoLytely prep GI prophylaxis: protonix DVT prophylaxis: SCDs Code: Full code as no documentation of patient's code status, patient is conserved Assessment and plan discussed with my attending physician Dr. Ad Sands (PGY-1)- Internal medicine resident
--- NOTE | 2024-09-08 16:30 | SUR.PHASEI ---
2430 Patient arrived to recovery, sleeping in [facility], on oxygen 4L via nasal cannula, breathing unlabored, vital signs stable, report received from [place] BRICENO
--- NOTE | 2024-09-08 16:38 | SUR.PHASEI ---
1638 patients heart rate 47-50bpm, verbal order read-back from Dr. Squires to give a patient 500ml LR fluid bolus via IV, will enter order into EMR and administer fluid per MD order
[2024-09-08] MEDS: RINGERS LACTATED 500 ML 500 ML 999 ML IV (16:40)
--- NOTE | 2024-09-08 17:20 | SUR.PHASEI ---
1709 Report given to Anmol RN, patient meets discharge criteria from recovery, awake, spontaneous eye movement, looks at staff when name is called, on oxygen 2L via nasal cannula, breathing unlabored, vital signs stable, appears comfortable and absence of nausea, noted. 1720 Patient transported via gurney to room 369 without incident.
--- NOTE | 2024-09-08 17:30 | PC.NURSE ---
Patient to room from PACU in stable condition. Awake, alert, nonverbal.
[2024-09-08] MEDS: MELATONIN 3 MG TABLET 9 MG PO (21:18)
--- NOTE | 2024-09-08 22:35 | PC.NURSE ---
Pt transferred from med-surg floor. Pt awake/alert/oriented to self. Respirations are even and unlabored. No s/s of acute distress noted. Bed to lowest position, call light within reach. Avasure in place.
[2024-09-09] VITALS: BP 115/66; PULSE 50; PULSE 63; RESP 18; TEMP 36.1; O2SAT 91
[2024-09-09 04:00] VITALS: BP 125/73; PULSE 55; PULSE 58; RESP 13; TEMP 36.1; O2SAT 90
--- NOTE | 2024-09-09 05:35 | PC.NURSE ---
Called hospitalist, spoke to resident Dr. Rodriguez regarding ordered medication. Ordered antibiotic Unasyn will be discontinued at 0600, asked if medication needs to be continued. Per MD, will review medication. No new orders received at this time.
[2024-09-09] MEDS: LEVOTHYROXINE SODIUM 25 MCG TABLET 75 MCG PO (05:53)
[2024-09-09 06:23] LABS: Basophils # (Auto) 0.0 Thou/mm3 (0.0-0.2); Basophils % (Auto) 1 % (0-2.5); Eosinophils # (Auto) 0.1 Thou/mm3 (0.0-0.5); Eosinophils % (Auto) 2 % (0-10); Hematocrit 35.8 % (41.0-53.0); Hemoglobin 12.2 g/dL (13.5-16.0); Immature Granulocytes Auto 0.01 Thou/mm3 (0.00-0.00); Lymphocytes # (Auto) 1.4 Thou/mm3 (1.0-4.8); Lymphocytes % (Auto) 20 % (10-50); Mean Corpuscular HGB Conc 34.1 g/dl (31.0-37.0); Mean Corpuscular Hemoglobin 31.4 pg (25.0-35.0); Mean Corpuscular Volume 92 fL (80-100); Monocytes # (Auto) 0.6 Thou/mm3 (0.0-0.8); Monocytes % (Auto) 8 % (0-12); Neutrophils # (Auto) 4.8 Thou/mm3 (1.8-7.7); Neutrophils % (Auto) 69 % (37-80); Nucleated Red Blood Cell # 0.00 Thou/mm3 (0.00-0.00); Nucleated Red Blood Cell % 0 /100 WBC (0); Platelet Count 255 Thou/mm3 (140-440); RDW Standard Deviation 45.1 fL (35.1-43.9); Red Blood Count 3.89 Miln/mm3 (4.50-5.90); White Blood Count 6.9 Thou/mm3 (3.8-10.6)
[2024-09-09 06:45] LABS: Alanine Aminotransferase 21 U/L (10-49); Albumin, Serum 3.6 gm/dL (3.4-4.8); Albumin/Globulin Ratio 1.5 (1.2-2.2); Alkaline Phosphatase 120 U/L (46-116); Anion Gap 12 (7-16); Aspartate Amino Transferase 26 U/L (0-34); BUN/Creatinine Ratio 7 Ratio (12-20); Bilirubin,Total 0.5 mg/dL (0.3-1.2); Blood Urea Nitrogen < 5 mg/dL (9-23); Calcium 9.3 mg/dL (8.3-10.6); Calcium (Corrected) 9.6 mg/dL (8.5-10.1); Carbon Dioxide 26.2 mMol/L (20.0-31.0); Chloride 107 mMol/L (98-107); Creatinine (Component) 0.7 mg/dL (0.6-1.3); Estimated Creatinine Clearance 101.3 mL/min (>60); Globulin 2.4 gm/dL (2.3-3.5); Glucose 79 mg/dL (74-106); Osmolality,Calculated 284 (275-295); Phosphorous 3.8 mg/dL (2.4-5.1); Potassium 3.5 mMol/L (3.4-5.1); Sodium 145 mMol/L (136-145); Total Protein 6.0 gm/dL (5.7-8.2); eGFR > 60 See Note
[2024-09-09 08:00] VITALS: BP 122/64; PULSE 60; PULSE 61; RESP 16; TEMP 36.4; O2SAT 93
[2024-09-09] MEDS: POLYETHYLENE GLYCOL 17 GM PACKET PO (09:39)
[2024-09-09 11:50] VITALS: BP 107/63; PULSE 60; RESP 19; TEMP 36.1; O2SAT 94
--- NOTE | 2024-09-09 12:12 | PC.NURSE ---
Discharged instructions given to caregiver at bedside. verbalizes understanding
--- NOTE | 2024-09-09 14:23 | ESDS_ITS ---
<Statement entered by Pat Duong MD - 09/14/24 11:44> I reviewed above note and agree with findings and plans. I have also personally examined the patient with medicine team and went over assessment and plan with medical team including international marketing specialist and resident physician. Planned Discharge Date 09/09/24 DS: Providers Provider Date of admission: 09/02/24 03:53 Primary care physician: Alfredo Fernandez PA-C Admitting Provider: Vaughn Butler MD Attending Provider on Admission: Pat Duong MD Consults: 09/02/24 03:58 Consult to Gastroenterology Routine Comment: Consulting Provider: Javier Squires 09/02/24 04:00 Referral Speech Therapy Routine Comment: Attending Provider on DC: RESIDENT Kimmy Discharging Provider: RESIDENT Kimmy DS: Diagnosis Problem List Completed Was Problem List Reviewed/Reconciled?: Yes Hospital Course Hospital Course Hospital course: 59-year-old male with past medical history of developmental delay nonverbal at baseline, cerebral palsy, chronic constipation, previous GI bleed, and GERD was admitted to the hospital on 09/02/2024 for severe constipation and aspiration pneumonia. Patient was given antibiotics. Colononscopy was unremarkable. Discharged with Miralax. ED course: Initially came in afebrile and normotensive. Initial labs were fairly unremarkable. Initial imaging included chest x-ray which showed right base pneumonia, soft tissue neck x-ray which was unremarkable, face CT which preliminary did not show any fractures, CTA chest with preliminary showed pneumonia, but no pneumothorax or pericardial effusions, CTA head with preliminary report did not show any intracranial hemorrhage or mass effect, and CT abdomen/pelvis with preliminary showed large stool ball distending the rectum with circumferential rectal wall thickening and perirectal fat stranding which is worrisome for stercoral colitis. ED physician attempted manual disimpaction but was unsuccessful. Hospital Course: Patient was given Unasyn 3g q6h. patient's EGD was unremarkable. NG tube was placed for GoLytely prep. Colonoscopy was postponed for several days because patient tried to pull out the tube. Colonoscopy (09/08/2024) Hemorrhoids, localized area of mildy erythematous mucosa in the sigmoid colon and in the rectum. Patient discontinued NG tube. He was discharged with MiraLAX and Senokot. #Severe constipation #Possible stercoral colitis #Possible Aspiration pneumonia #Acute hypoxic respiratory failure, resolved #Choking episode #Acute encephalopathy Instructions: -Continue all medication -Mirlax for constipation -Stop Seroquel 25 mg and Trazodone 50mg on discharge, due to medication adverse event. -Please follow up with your primary care provider within one week of discharge -If your symptoms worsen,please seek immediate medical attention and return to your nearest emergency room -If you do not have a primary care provider, you may follow up at the [facility] at [address] [place] [address] [address], [place] [address], Safe to discharge to home care Assessment and plan discussed with my attending physician Dr. uDong and Dr. Barnard (PGY-2) Dr. Sands (PGY-1)- Internal medicine resident - The patient's plan was discussed with attending Dr. Ad Barnard MD PGY2 Internal Medicine Time Spent with Patient Time attestation: Total time spent providing and/or coordinating discharge services: at least thirty minutes of care and coordination Time spent: Greater than 30 minutes Exam Vital Signs Temp Pulse Resp BP Pulse Ox O2 Del Method O2 Flow Rate 97.0 F 60 19 107/63 94 L Room Air 1 09/09/24 11:50 09/09/24 11:50 09/09/24 11:50 09/09/24 11:50 09/09/24 11:50 09/09/24 11:50 09/09/24 08:00 Narrative Exam General: Awake, spontaneous movements. Cerebral palsy, nonverbal. HEENT: Normocephalic, atraumatic, mucous membranes moist. Heart: Regular rate and rhythm, normal S1 and S2, no murmurs. Lungs: Clear to auscultation with no wheezing or crackles. Abdomen: Firm and tense but not concerning for peritoneal signs, nondistended, nontender, positive bowel sounds. No guarding or rebound tenderness. Neurologic: Alert and oriented x3, no gross neurological deficit, and patient able to move all 4 extremities. Extremities: Contracted feet. Moves extremities spontaneously. Skin: No rash or ecchymoses. Discharge Plan Plan Patient Disposition: Xfer Other Patient condition on transfer: Stable Care Plan Goals: Instructions: -Continue all medication -Mirlax for constipation -Stop Seroquel 25 mg and Trazodone 50mg on discharge, due to medication adverse event. -Please follow up with your primary care provider within one week of discharge -If your symptoms worsen,please seek immediate medical attention and return to your nearest emergency room -If you do not have a primary care provider, [facility] [address], [place] [address], Prescriptions/Referrals Prescriptions/Med Rec: New sennosides [Senokot] 8.6 mg tablet 8.6 mg PO BID Qty: 30 0RF Continued atorvastatin [Lipitor] 20 MG tablet 20 mg PO HS Qty: 0 melatonin 5 MG tablet 10 mg PO HS Qty: 0 levothyroxine 75 mcg Capsule 75 mcg PO QDAY azelastine 0.05 % drops 1 drp ophthalmic (eye) BID Rx Instructions: r.eye Changed polyethylene glycol 3350 [Miralax] 17 gram/dose powder 4 g PO BID 14 Days Qty: 0 0RF Discontinued docusate sodium [DOK] 250 MG capsule 250 mg PO BID Qty: 0 trazodone 50 mg Tablet 50 mg PO HS trazodone 100 mg tablet 100 mg PO QDAY Patient Comments: hs quetiapine [Seroquel] 25 mg tablet 25 mg PO QDAY Rx Instructions: hs Referrals: Alfredo Fernandez PA-C [Primary Care Provider] - Patient/Caregiver Discharge Instructions Discharge Activity: activity as tolerated Other Discharge Activity Instructions:: Allowed back to Day program Education Materials: Anatomy of the Digestive System, How the Colon Works Print Language: Divehi Stand Alone Forms: Parvin Award Info., Patient Portal Info Letter Discharge Order Discharge Orders: Discharge (Routine); Ordered 09/09/24 Ordered By: Monie Barnard Quality Discharge Quality Measures VTE prophylaxis
== END 2024-09-09 12:00 | disposition other institution (70) | DRG 137 ==
LOC: SERX 09-02 03:10 → SERHOLD 09-02 04:14 → S3SX 09-02 12:42 → S2NX 09-08 22:29
PROVIDERS: Specialist; Student in an Organized Health Care Education/Training Program; Admitting Provider Internal Medicine; Emergency Provider Emergency Medicine; PCP Physician Assistant; Visit Provider Internal Medicine
PROC: (CPT 43239; principal; 2024-09-04 19:30)
PROC: 0DJD8ZZ Inspection of Lower Intestinal Tract, Via Natural or Artificial Opening Endoscopic (ICD-10-PCS; CPT 45378; principal; 2024-09-08 15:30)
DX: J69.0 Pneumonitis due to inhalation of food and vomit (principal); K59.09 Other constipation; G80.9 Cerebral palsy, unspecified; K52.89 Other specified noninfective gastroenteritis and colitis; K22.2 Esophageal obstruction; G93.49 Other encephalopathy; J96.01 Acute respiratory failure with hypoxia; K21.00 Gastro-esophageal reflux disease with esophagitis, without bleeding; K64.9 Unspecified hemorrhoids; Z78.1 Physical restraint status
CPT/HCPCS: 36415; 36600; 70360; 70450; 70486; 70496; 70498; 71045; 71275; 74177; 80048; 80053; 82803; 83735; 83880; 84100; 84484; 85025; 87400; 87811; 92526; 92610; 93005; 94667; 96365; 96375; 96376; 99291; A4649; J0295; J1200; J2250; J2470; J3010; J3475; J3480; J7120; J7999; Q9967; A9270